=== PATIENT | female | born 1955 | race Caucasian/White ===

== ENCOUNTER 2021-03-05 09:20 | Outpatient (REF) | payer MEDICARE, SELFPAY ==
--- NOTE | ~2021-03-05 | MM_ITS ---
EXAMINATION: MM SCREENING DIGITAL BREAST TOMOSYNTHESIS, BILATERAL CLINICAL INFORMATION: Screening. Asymptomatic. The lifetime risk of breast cancer based on the Tyrer-Cuzick Model is 6%. COMPARISON: Mammography: 01/20/2020, 07/04/2018, 04/03/2015 TECHNIQUE: Digital breast tomosynthesis is performed in both the craniocaudal and mediolateral oblique views along with computer-aided detection (CAD). Synthesized 2D images are generated from the tomosynthesis. Additional left MLO view is provided. FINDINGS: The breasts are heterogeneously dense, which may obscure small masses (ACR BI-RADS breast composition Category c). The right breast has a 4 mm nodular asymmetry on the MLO view close to skin inferior breast, 4 cm. The nipple. Patient will be recalled for additional imaging. The remainder of the breasts are significant changes from prior studies. There is no interval mass or architectural abnormality or abnormal calcifications in the remainder of the breasts. The axilla and skin contours are unremarkable. MM/MM tomosynthesis screening BI IMPRESSION: 1. Right: Nodular asymmetric density lower quadrant on MLO view, close to skin. 2. Left: No mammographic evidence of malignancy. ASSESSMENT: BI-RADS 0: Incomplete - Need Additional Imaging Evaluation RECOMMENDATION: 1. Assess for dermal lesion in this area are obtained imaging with skin marker if applicable. Otherwise, ML, spot CC outer). 2. Targeted ultrasound if warranted after review of the additional views. 3. Radiology department staff will contact the patient for additional imaging. This patient's information was entered into a reminder system with a target due date for their next mammogram.
== END 2021-03-05 09:21 | disposition home or self-care (01) ==
LOC: HO.MAMMO 09:20
PROVIDERS: PCP Internal Medicine; Visit Provider Internal Medicine
DX: Z12.31 Encounter for screening mammogram for malignant neoplasm of breast (principal)
CPT/HCPCS: 77063; 77067

== ENCOUNTER 2021-03-11 07:47 | Outpatient (REF) | payer MEDICARE, SELFPAY ==
--- NOTE | ~2021-03-11 | MM_ITS ---
EXAMINATION: MM DIAGNOSTIC DIGITAL BREAST TOMOSYNTHESIS, RIGHT CLINICAL INFORMATION: Nodular density inferiorly COMPARISON: Mammography: March 05, 2021 and studies dating back to October 25, 2012 TECHNIQUE: Digital breast tomosynthesis is performed. 2D images are generated from the tomosynthesis. The following views are obtained: Spot compression craniocaudal and mediolateral oblique views. FINDINGS: The breasts are heterogeneously dense, which may obscure small masses (ACR BI-RADS breast composition Category c). Additional views show no significant mass, architectural abnormality, or abnormal calcifications. There is a mole noted about the inferior and slightly medial aspect of the right breast and not lateral. Targeted right breast ultrasound did not demonstrate any abnormal cystic or solid lesion. No region of suspicious distal sound shadowing identified. Results are discussed with the patient at time of visit. MM/MM tomosynthesis added views R IMPRESSION: No persistent suspicious mass. ASSESSMENT: BI-RADS 1: Negative RECOMMENDATION: Routine annual screening. This patient's information was entered into a reminder system with a target due date for their next mammogram.
--- NOTE | ~2021-03-11 | US_ITS ---
EXAMINATION: US DIAGNOSTIC ULTRASOUND BREAST, RIGHT CLINICAL INFORMATION: Question nodular density on mammography. COMPARISON: Mammography of March 11, 2021 and studies dating back to October 25, 2012. TECHNIQUE: Ultrasound of the breast is performed with real-time robbins scale imaging and color Doppler. FINDINGS: There is no focal suspicious finding. There is no solid mass, architectural abnormality, duct ectasia, or edema in the soft tissue planes. Results are discussed with the patient at time of visit. US/US breast RT limited IMPRESSION: No suspicious right breast nodule identified. ASSESSMENT: BI-RADS 1: Negative RECOMMENDATION: Routine annual mammography screening. This patient's information was entered into a reminder system with a target due date for their next mammogram.
== END 2021-03-11 07:48 | disposition home or self-care (01) ==
LOC: HO.MAMMO 07:47
PROVIDERS: Visit Provider Internal Medicine
DX: R92.2 Inconclusive mammogram (principal)
CPT/HCPCS: 76642; 77061; 77065

== ENCOUNTER 2022-02-22 09:21 | Outpatient (REF) | payer MEDICARE, SELFPAY ==
[2022-02-22 11:35] LABS: MANUAL DIFF FLAG NO
[2022-02-22 11:41] LABS: Basophils Percent Auto 0.3 % (0-2); Eosinophils Absolute Auto 0.1 X10*3/uL (0.0-0.4); Eosinophils Percent Auto 2.1 % (0-4); Hematocrit 40.9 % (37.0-47.0); Imm Gran Abs Auto 0.02 X10*3/uL (0.00-0.03); Imm Gran Pct Auto 0.3 % (0.0-0.4); Lymphocytes Absolute Auto 1.1 X10*3/uL (1.2-4.9); Mean Corpuscular HGB Conc 31.8 g/dl (31.0-35.0); Mean Corpuscular Hemoglobin 29.7 pg (27.0-33.0); Mean Corpuscular Volume 93.6 fL (80.0-98.0); Mean Platelet Volume 10.7 fL (9.4-12.3); Monocytes Absolute Auto 0.5 X10*3/uL (0.1-1.2); Monocytes Percent Auto 7.6 % (2-11); Neutrophils Absolute Auto 4.5 x10*3/uL (2.0-8.3); Neutrophils Percent Auto 72.7 % (45-73); Platelet Count 244 X10*3/uL (160-400); Red Blood Count 4.37 X10*6/uL (4.20-5.50); Red Cell Distribution Width 13.6 % (11.0-16.0); White Blood Count 6.2 X10*3/uL (4.8-10.8)
[2022-02-22 12:11] LABS: Alanine Aminotransferase 16 U/L (0-31); Albumin Level 4.2 g/dL (3.5-5.0); Alkaline Phosphatase 68 U/L (39-117); Anion Gap 11 (12-20); Aspartate Amino Transferase 20 U/L (5-31); Bilirubin Total 0.5 mg/dL (0.0-1.0); Blood Urea Nitrogen 17 mg/dL (9-16); Calcium 9.1 mg/dL (8.4-10.2); Carbon Dioxide 30 mmol/L (22-29); Chloride 103 mmol/L (96-108); Cholesterol 202 mg/dL; Estimated Glomerular Filt Rate > 60; Glucose Random 97 mg/dL (60-115); HDL Cholesterol 63 mg/dL; LDL Cholesterol Calculated 126 mg/dl; Potassium 4.1 mmol/L (3.3-5.1); Sodium 140 mmol/L (135-145); Triglycerides 66 mg/dL
[2022-02-22 12:15] LABS: Vitamin D 25-OH Total 41.1 ng/mL (>30)
== END 2022-02-22 09:22 | disposition home or self-care (01) ==
LOC: HO.HMGCLDS 09:21
PROVIDERS: Visit Provider Internal Medicine
DX: E55.9 Vitamin D deficiency, unspecified (principal); E78.00 Pure hypercholesterolemia, unspecified; M54.50 Low back pain, unspecified; G89.29 Other chronic pain; Z86.79 Personal history of other diseases of the circulatory system
CPT/HCPCS: 36415; 80053; 80061; 82306; 84443; 85025

== ENCOUNTER 2022-03-29 09:00 | Outpatient (REF) | payer MEDICARE, SELFPAY ==
--- NOTE | ~2022-03-29 | MM_ITS ---
EXAMINATION: MM SCREENING DIGITAL BREAST TOMOSYNTHESIS, BILATERAL CLINICAL INFORMATION: Screening. Asymptomatic. The lifetime risk of breast cancer based on the Tyrer-Cuzick Model is 5%. COMPARISON: Mammography: 03/11/2021, 03/05/2021, 01/20/2020, 07/04/2018; ultrasound right breast 03/11/2021 TECHNIQUE: Digital breast tomosynthesis is performed in both the craniocaudal and mediolateral oblique views along with computer-aided detection (CAD). Synthesized 2D images are generated from the tomosynthesis. Additional right CC and left MLO views are provided. FINDINGS: The breasts are heterogeneously dense, which may obscure small masses (ACR BI-RADS breast composition Category c). Breast tissue composition borders on extremely dense. There are minor asymmetries similar to prior studies. No developing density or architectural abnormality. No significant mass or abnormal calcifications. The axilla are unremarkable. MM/MM tomosynthesis screening BI IMPRESSION: No mammographic evidence of malignancy. ASSESSMENT: BI-RADS 2: Benign RECOMMENDATION: Routine annual mammography screening. This patient's information was entered into a reminder system with a target due date for their next mammogram.
--- NOTE | ~2022-03-29 | MM_ITS ---
EXAMINATION: BONE DENSITOMETRY CLINICAL INDICATION: Menopause. COMPARISON: Previous BD dated 01/20/2020 and baseline BD dated 04/10/2007. TECHNIQUE: Using a [employer] DXA System (software version: 13.1) manufactured by [employer], dual-energy x-ray absorptiometry was performed of the lumbar spine and left hip. The images are of good technical quality. Summary results are attached. FINDINGS: AP SPINE L1-L4: Current: BMD 0.933 g/cm2, Z-score -0.6, T-score -2.1, osteopenia, 2.6% increase from previous, 11.4% decrease from baseline (<5% change is not significant). Prior: BMD 0.909 g/cm2. Baseline: BMD 1.053 g/cm2. LEFT FEMUR, NECK: Current: BMD 0.852 g/cm2, Z-score 0.1, T-score -1.3, osteopenia. Prior: BMD 0.819 g/cm2. Baseline: BMD 0.927 g/cm2. LEFT FEMUR, TOTAL: Current: BMD 0.834 g/cm2, Z-score -0.2, T-score -1.4, osteopenia, 3.5% decrease from previous, 12.1% decrease from baseline (<5% change is not significant). Prior: BMD 0.864 g/cm2. Baseline: BMD 0.949 g/cm2. IDENTIFIED RISK FACTORS: Height loss, menopause. HISTORY OF FRACTURE: None listed. MEDICATIONS: Calcium supplements or multivitamin, vitamin D. MM/XR DEXA axial skeleton IMPRESSION: 1. DIAGNOSIS: Osteopenia based on the lowest T-score value of -2.1 in the lumbar spine applying World Health Organization criteria. 2. 10-YEAR FRACTURE RISK PREDICTION, FRAX: Major osteoporotic fracture (clinical spine, forearm, hip or shoulder) 9.2%. Hip fracture 1.1%. 3. Treatment Recommendations: NOF guidelines recommend consideration for treatment in postmenopausal women and men age 50 and older presenting with the following: -A hip or vertebral (clinical or morphometric) fracture. -T-score less than or equal to -2.5 at the femoral neck or spine after appropriate evaluation to exclude secondary causes. -Low bone mass at the hip or spine and a 10-year fracture probability by FRAX of greater than or equal to 3% for hip fracture or greater than or equal to 20% for major osteoporotic fracture based on the [place] adapted WHO algorithm. 4. Other Recommendations: All treatment decisions require clinical judgment and consideration of individual patient factors, including patient preferences, comorbidities, previous drug use, risk factors not captured in the FRAX model (e.g. frailty, falls, vitamin D deficiency, increased bone turnover, interval significant decline in bone density) and possible under or overestimation of fracture risk by FRAX. Additional medical evaluation for secondary cause of low bone mineral density may be appropriate. FUTURE SCAN RECOMMENDATION: People with diagnosed cases of osteoporosis or at high risk for fracture should have regular bone mineral density tests. For patients eligible for Medicare, routine testing is allowed once every 2 years. The testing frequency can be increased to one year for patients who have rapidly progressing disease, those who are receiving or discontinuing medical therapy to restore bone mass, or have additional risk factors.
== END 2022-03-29 09:01 | disposition home or self-care (01) ==
LOC: HO.MAMMO 09:00
PROVIDERS: Visit Provider Internal Medicine
DX: Z12.31 Encounter for screening mammogram for malignant neoplasm of breast (principal); Z13.820 Encounter for screening for osteoporosis; Z78.0 Asymptomatic menopausal state; M85.80 Other specified disorders of bone density and structure, unspecified site
CPT/HCPCS: 77063; 77067; 77080

== ENCOUNTER 2022-09-09 13:00 | Outpatient (RCR) | payer MEDICARE, SELFPAY | END 2022-09-09 16:05 | disposition home or self-care (01) | LOC: HO.PTCHIC 13:00 | PROVIDERS: Visit Provider Physical Medicine & Rehabilitation | DX: M25.551 Pain in right hip (principal); M25.552 Pain in left hip | CPT/HCPCS: 97110; 97116; 97140; 97161 ==

== ENCOUNTER 2023-03-30 08:56 | Outpatient (REF) | payer MEDICARE, SELFPAY ==
--- NOTE | ~2023-03-30 | MM_ITS ---
EXAMINATION: MM SCREENING DIGITAL BREAST TOMOSYNTHESIS, BILATERAL CLINICAL INFORMATION: Screening. Asymptomatic. The lifetime risk of breast cancer based on the Tyrer-Cuzick Model is 5.9%. COMPARISON: Mammography: March 29, 2022 and studies dating back to October 25, 2012 TECHNIQUE: Digital breast tomosynthesis is performed in both the craniocaudal and mediolateral oblique views along with computer-aided detection (CAD). Synthesized 2D images are generated from the tomosynthesis. FINDINGS: The breasts are heterogeneously dense, which may obscure small masses (ACR BI-RADS breast composition Category c). There are no new significant masses, abnormal calcifications, or other abnormalities. MM/MM tomosynthesis screening BI IMPRESSION: No significant changes from prior exam. ASSESSMENT: BI-RADS 1: Negative RECOMMENDATION: Routine annual mammography screening. This patient's information was entered into a reminder system with a target due date for their next mammogram.
== END 2023-03-30 08:57 | disposition home or self-care (01) ==
LOC: HO.MAMMO 08:56
PROVIDERS: PCP Internal Medicine; Visit Provider Internal Medicine
DX: Z12.31 Encounter for screening mammogram for malignant neoplasm of breast (principal)
CPT/HCPCS: 77063; 77067

== ENCOUNTER 2023-10-24 09:24 | Outpatient (REF) | payer MEDICARE, SELFPAY ==
[2023-10-24 11:15] LABS: MANUAL DIFF FLAG NO
[2023-10-24 11:20] LABS: Basophils Absolute Auto 0.1 X10*3/uL (0.0-0.2); Basophils Percent Auto 1.2 % (0-2); Eosinophils Absolute Auto 0.4 X10*3/uL (0.0-0.4); Eosinophils Percent Auto 8.3 % (0-4); Hematocrit 37.5 % (37.0-47.0); Hemoglobin 12.1 g/dl (12.0-16.0); Imm Gran Abs Auto 0.02 X10*3/uL (0.00-0.03); Imm Gran Pct Auto 0.4 % (0.0-0.4); Lymphocytes Absolute Auto 0.9 X10*3/uL (1.2-4.9); Lymphocytes Percent Auto 17.7 % (20-40); Mean Corpuscular HGB Conc 32.3 g/dl (31.0-35.0); Mean Corpuscular Volume 92.8 fL (80.0-98.0); Mean Platelet Volume 10.7 fL (9.4-12.3); Monocytes Absolute Auto 0.6 X10*3/uL (0.1-1.2); Monocytes Percent Auto 10.7 % (2-11); Neutrophils Absolute Auto 3.2 x10*3/uL (2.0-8.3); Neutrophils Percent Auto 61.7 % (45-73); Platelet Count 250 X10*3/uL (160-400); Red Blood Count 4.04 X10*6/uL (4.20-5.50); Red Cell Distribution Width 13.4 % (11.0-16.0); White Blood Count 5.2 X10*3/uL (4.8-10.8)
[2023-10-24 12:21] LABS: Alanine Aminotransferase 15 U/L (0-31); Albumin Level 4.1 g/dL (3.5-5.0); Alkaline Phosphatase 67 U/L (39-117); Anion Gap 11 (12-20); Aspartate Amino Transferase 23 U/L (5-31); Bilirubin Total 0.4 mg/dL (0.0-1.0); Blood Urea Nitrogen 28 mg/dL (9-16); Calcium 8.9 mg/dL (8.4-10.2); Carbon Dioxide 28 mmol/L (22-29); Chloride 105 mmol/L (96-108); Cholesterol 198 mg/dL (<200); Estimated Glomerular Filt Rate > 60; Glucose Random 93 mg/dL (60-115); HDL Cholesterol 60 mg/dL (>40); LDL Cholesterol Calculated 122 mg/dL (<100); Potassium 4.2 mmol/L (3.3-5.1); Sodium 140 mmol/L (135-145); Thyroid Stimulating Hormone 2.71 uIU/mL (0.32-4.0); Total Protein 7.1 g/dL (6.5-8.0); Triglycerides 80 mg/dL (<150)
== END 2023-10-24 09:25 | disposition home or self-care (01) ==
LOC: HO.HMGCLDS 09:24
PROVIDERS: PCP Internal Medicine; Visit Provider Internal Medicine
DX: M15.9 Polyosteoarthritis, unspecified (principal); M34.1 CR(E)ST syndrome; E78.00 Pure hypercholesterolemia, unspecified; Z86.79 Personal history of other diseases of the circulatory system
CPT/HCPCS: 36415; 80053; 80061; 84443; 85025

== ENCOUNTER 2024-04-12 12:46 | Outpatient (REF) | payer MEDICARE, SELFPAY ==
--- NOTE | ~2024-04-12 | MM_ITS ---
EXAMINATION: BONE DENSITOMETRY CLINICAL INDICATION: Asymptomatic menopausal state. COMPARISON: Previous BD dated 03/29/2022 and baseline BD dated 04/10/2007. TECHNIQUE: Using a [employer] DXA System (software version: 13.1) manufactured by [employer], dual-energy x-ray absorptiometry was performed of the lumbar spine and left hip. The images are of good technical quality. Summary results are attached. FINDINGS: LEFT FEMUR, NECK: Current: BMD 0.882 g/cm2, Z-score 0.4, T-score -1.1, osteopenia. Prior: BMD 0.852 g/cm2. Baseline: BMD 0.927 g/cm2. LEFT FEMUR, TOTAL: Current: BMD 0.817 g/cm2, Z-score -0.2, T-score -1.5, osteopenia, 2.0% decrease from previous, 13.9% decrease from baseline (<5% change is not significant). Prior: BMD 0.834 g/cm2. Baseline: BMD 0.949 g/cm2. AP SPINE L1-L4: Current: BMD 0.913 g/cm2, Z-score -0.8, T-score -2.2, osteopenia, 2.1% decrease from previous, 13.3% decrease from baseline (<5% change is not significant). Prior: BMD 0.933 g/cm2. Baseline: BMD 1.053 g/cm2. IDENTIFIED RISK FACTORS: Menopause. HISTORY OF FRACTURE: None listed. MEDICATIONS: Calcium supplements or multivitamin, vitamin D. MM/XR DEXA axial skeleton IMPRESSION: 1. DIAGNOSIS: Osteopenia based on the lowest T-score value of -2.2 in the lumbar spine applying World Health Organization criteria. 2. 10-YEAR FRACTURE RISK PREDICTION, FRAX: Major osteoporotic fracture (clinical spine, forearm, hip or shoulder) 9.0%. Hip fracture 1.0%. 3. Treatment Recommendations: NOF guidelines recommend consideration for treatment in postmenopausal women and men age 50 and older presenting with the following: -A hip or vertebral (clinical or morphometric) fracture. -T-score less than or equal to -2.5 at the femoral neck or spine after appropriate evaluation to exclude secondary causes. -Low bone mass at the hip or spine and a 10-year fracture probability by FRAX of greater than or equal to 3% for hip fracture or greater than or equal to 20% for major osteoporotic fracture based on the [place] adapted WHO algorithm. 4. Other Recommendations: All treatment decisions require clinical judgment and consideration of individual patient factors, including patient preferences, comorbidities, previous drug use, risk factors not captured in the FRAX model (e.g. frailty, falls, vitamin D deficiency, increased bone turnover, interval significant decline in bone density) and possible under or overestimation of fracture risk by FRAX. Additional medical evaluation for secondary cause of low bone mineral density may be appropriate. FUTURE SCAN RECOMMENDATION: People with diagnosed cases of osteoporosis or at high risk for fracture should have regular bone mineral density tests. For patients eligible for Medicare, routine testing is allowed once every 2 years. The testing frequency can be increased to one year for patients who have rapidly progressing disease, those who are receiving or discontinuing medical therapy to restore bone mass, or have additional risk factors.
== END 2024-04-12 12:47 | disposition home or self-care (01) ==
LOC: HO.MAMMO 12:46
PROVIDERS: PCP Internal Medicine; Visit Provider Internal Medicine
DX: Z12.31 Encounter for screening mammogram for malignant neoplasm of breast (principal); Z13.820 Encounter for screening for osteoporosis; Z78.0 Asymptomatic menopausal state
CPT/HCPCS: 77063; 77067; 77080

== ENCOUNTER → 2024-04-12 13:00 | Outpatient (BNV) | payer MEDICARE, SELFPAY | PROVIDERS: PCP Internal Medicine; Visit Provider Radiology Diagnostic Radiology | DX: Z12.31 Encounter for screening mammogram for malignant neoplasm of breast (principal) | CPT/HCPCS: 77063; 77067 ==

== ENCOUNTER 2024-09-27 13:41 | Outpatient (AMB) | payer MEDICARE, SELFPAY ==
[2024-09-27 13:45] VITALS: BP 108/60; PULSE 72; O2SAT 99; BMI 22.1
--- NOTE | 2024-09-27 13:45 | MHC.OFFVIS ---
Vital Signs 09/27/24 13:45 Height 5 ft 7.5 in Weight 143 lb 4.807 oz BMI 22.1 BP 108/60 Blood Pressure Location Lt brachial Position Sitting Pulse 72 Pulse Source Pulse Oximeter Pulse Oximetry (%) 99 Oxygen Delivery Method Room Air Intake Visit Reasons: deshawn [employer] Required: No Allergies amoxicillin Allergy (Unknown, Uncoded 09/27/24 13:50) rash bactrim Allergy (Unknown, Uncoded 09/27/24 13:50) facial redness codeine Allergy (Unknown, Uncoded 09/27/24 13:50) vomiting percocet Allergy (Unknown, Uncoded 09/27/24 13:50) vomiting HPI Comments Details: the patient is here for pulmonary evaluation. The patient is a 69-year-old woman with a known history of limited scleroderma, pulmonary fibrosis, sleep apnea on CPAP in addition to cardiac arrhythmia. Apparently she was diagnosed with atrial fibrillation atrial flutter and did require ablation. Currently on medication. The patient has been demonstrating worsening daytime drowsiness. Her [place] score is elevated 10/20. The patient had been on CPAP many years ago. with her worsening daytime drowsiness in his significant cardiac arrhythmia history the patient benefits from an in-lab sleep study at this time. She also states that she does have increasing dyspnea on exertion. [id number] severity. Difficult for her to ambulate because she does have a bad hip. In regards of her limited scleroderma patient denies any worsening Dysphagia. She has not had any recent imaging studies to assess for any pulmonary fibrosis. She does get Raynaud's although denies any necrosis or ischemia to the tip fingers. [facility] Medical History (Updated 09/29/24 @ 19:04 by Lavelle Jacques MD) Limited scleroderma SVT (supraventricular tachycardia) Atrial flutter DESHAWN (obstructive sleep apnea) Social History (Updated 09/27/24 @ 13:52 by ZECHARIAH Millan) Patient Tobacco Use Status: Former Tobacco user Review of Systems Const Reports daytime sleepiness, Reports difficulty sleeping, Reports headache(s), Reports snoring and Reports stops breathing during sleep Eyes Reports no additional complaints ENT Denies dysphagia and Reports headache(s) Card Reports palpitations Resp Reports snoring and Denies wheezing GI Denies dysphagia Musc Reports myalgias, Reports arthralgias and Reports limited range of motion Skin/Breast Denies rash Neuro Reports headache(s) Endo Reports palpitations Aller/Immun Denies wheezing Physical Exam Vital Signs: Last Vital Signs Pulse 72 09/27/24 13:45 BP 108/60 09/27/24 13:45 Pulse Ox 99 09/27/24 13:45 Oxygen Delivery Method Room Air 09/27/24 13:45 BMI result Body Mass Index 22.1 Const General: comfortable HEENT Head: Yes normocephalic Neck Neck: Yes supple Chest Chest palpation & inspection: normal inspection of the chest Resp Effort & Inspection: normal respiratory effort Auscultation: clear to auscultation bilaterally GI Palpation (GI): Soft to palpation Skin General skin exam: no rashes or lesions noted Extrem General: Yes no clubbing, cyanosis or edema Assessment & Plan Assessment & Plan (1) DESHAWN (obstructive sleep apnea): Code(s): G47.33 - Obstructive sleep apnea (adult) (pediatric) Category: Medical (2) Atrial flutter: Code(s): I48.92 - Unspecified atrial flutter Category: Medical Qualifiers: Atrial flutter type: unspecified Qualified Code(s): I48.92 - Unspecified atrial flutter (3) SVT (supraventricular tachycardia): Code(s): I47.10 - Supraventricular tachycardia, unspecified Category: Medical (4) Limited scleroderma: Code(s): M34.9 - Systemic sclerosis, unspecified Category: Medical Plan in lab PSG repeat CXR F/U 2 months Orders: Orders RT PSG in-lab sleep study 09/27/24 G47.33 - Obstructive sleep apnea (adult) (pediatric), I47.10 - Supraventricular tachycardia, unspecified, I48.92 - Unspecified atrial flutter XR chest 2V Today M34.9 - Systemic sclerosis, unspecified Coding Level of Care Code New Pt Level 4 (50891) Diagnoses DESHAWN (obstructive sleep apnea) G47.33 Atrial flutter, unspecified type I48.92 Atrial flutter type: unspecified SVT (supraventricular tachycardia) I47.10 Limited scleroderma M34.9 Time Spent (min) 30
== END 2024-09-27 14:12 | disposition home or self-care (01) ==
LOC: HO.HPS 13:41
PROVIDERS: PCP Internal Medicine; Visit Provider Hospitalist
DX: G47.33 Obstructive sleep apnea (adult) (pediatric) (principal); I48.92 Unspecified atrial flutter; I47.10 Supraventricular tachycardia, unspecified; M34.9 Systemic sclerosis, unspecified
CPT/HCPCS: 99204

== ENCOUNTER → 2024-09-27 13:41 | Outpatient (BNVA) | payer MEDICARE, SELFPAY | PROVIDERS: PCP Internal Medicine; Visit Provider Hospitalist | DX: G47.33 Obstructive sleep apnea (adult) (pediatric) (principal); M34.9 Systemic sclerosis, unspecified; J84.10 Pulmonary fibrosis, unspecified; I48.92 Unspecified atrial flutter; I47.10 Supraventricular tachycardia, unspecified; Z99.89 Dependence on other enabling machines and devices | CPT/HCPCS: 99202 ==

== ENCOUNTER → 2024-10-18 20:30 | Outpatient (REF) | payer MEDICARE, SELFPAY | LOC: HO.SL 20:30 | PROVIDERS: PCP Internal Medicine; Visit Provider Hospitalist | DX: G47.33 Obstructive sleep apnea (adult) (pediatric) (principal); I48.92 Unspecified atrial flutter; I47.10 Supraventricular tachycardia, unspecified | CPT/HCPCS: 95810 ==

== ENCOUNTER 2024-11-13 13:19 | Outpatient (AMB) | payer MEDICARE, SELFPAY ==
[2024-11-13 13:25] VITALS: BP 108/62; PULSE 76; O2SAT 100; BMI 22.6
--- NOTE | 2024-11-13 13:25 | A.OFFVIS_ITS ---
Vital Signs 11/13/24 13:25 Height 5 ft 7.2 in Weight 145 lb 1.027 oz BMI 22.6 BP 108/62 Blood Pressure Location Lt brachial Position Sitting Pulse 76 Pulse Source Pulse Oximeter Pulse Oximetry (%) 100 Oxygen Delivery Method Room Air Intake Visit Reasons: Arthritis Intake Note: Patient presents today for follow up on osteoarthritis. Allergies amoxicillin Allergy (Unknown, Uncoded 11/13/24 13:27) rash bactrim Allergy (Unknown, Uncoded 11/13/24 13:27) facial redness codeine Allergy (Unknown, Uncoded 11/13/24 13:27) vomiting percocet Allergy (Unknown, Uncoded 11/13/24 13:27) vomiting HPI HPI Arthritis: Details: She saw Dermatology Dr. Marie for management of scalp psoriasis and eye lid psoriasis. She is being treated with topicals. Dermatology is not concerned for scleroderma affecting her forearm. No biopsy was done. Raynauds in hands- fingers turn white in cold, self-limited. Controlled with wearing gloves. No dysphagia, dyspnea, pleurisy, oral ulcerations, joint pain, fevers, fatigue. She will be seeing roof fitter next year with repeat echocardiogram. She is being evaluated for pulmonary hypertension associated with systemic sclerosis with echocardiograms every 3 years. [facility] Medical History (Updated 11/14/24 @ 16:07 by Andrei Jimenez MD) Limited scleroderma SVT (supraventricular tachycardia) Atrial flutter RINA (obstructive sleep apnea) Social History (Updated 09/27/24 @ 13:52 by Dorita Shepard Lucas) Patient Tobacco Use Status: Former Tobacco user Review of Systems Const All systems reviewed & are unremarkable except as noted in HPI and below Physical Exam Vital Signs: Last Vital Signs Pulse 76 11/13/24 13:25 BP 108/62 11/13/24 13:25 Pulse Ox 100 11/13/24 13:25 Oxygen Delivery Method Room Air 11/13/24 13:25 BMI result Body Mass Index 22.6 Const Other: General: Comfortable CVS: RRR Respiratory: clear to auscultation bilaterally. Good respiratory effort Skin: No lesions seen. Sclerodactyly present. No digital ulcerations or discoloration of fingertips. Facial wrinkles present. MSK: No tenderness of any joints. R 2nd PIP swollen and tender on exam. Good range of motion of upper extremities and lower extremities. 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 Clinically, quiescent. She has developed right 2nd PIP synovitis likely related to degenerative joint disease as noted on her x-ray from 05/27/2024. We discussed conservative management. My suspicion for psoriatic arthritis is low at this time. I will monitor for progression. Code(s): M34.9 - Systemic sclerosis, unspecified Category: Medical Plan: Her roof fitter will be retiring next year. I will be monitoring her for the development of pulmonary hypertension with repeating echocardiograms every 3 years as has been the plan per her roof fitter Apply diclofenac gel 1% to affected area every 4-6 hours ESR and CRP ordered to evaluate for disease activity She will call office if joint symptoms progress Return to clinic in 3 months (2) Raynaud disease: Comment: Conservatively managed. Code(s): I73.00 - Raynaud's syndrome without gangrene Category: Medical Qualifiers: Raynaud?s-associated gangrene presence: without gangrene Qualified Code(s): I73.00 - Raynaud's syndrome without gangrene Plan: Continue conservative management Orders: Orders Erythrocyte Sedimentation Rate 11/13/24 M34.9 - Systemic sclerosis, unspecified C Reactive Protein 11/13/24 M34.9 - Systemic sclerosis, unspecified Coding Level of Care Code Est Pt Level 4 (06128) Complex EM visit Add On G2211 Diagnoses Limited scleroderma M34.9 Raynaud's disease without gangrene I73.00 Raynaud?s-associated gangrene presence: without gangrene
== END 2024-11-13 14:23 | disposition home or self-care (01) ==
PROVIDERS: PCP Internal Medicine; Visit Provider Internal Medicine Rheumatology
DX: M34.9 Systemic sclerosis, unspecified (principal); I73.00 Raynaud's syndrome without gangrene
CPT/HCPCS: 99214; G2211

== ENCOUNTER → 2024-11-13 13:19 | Outpatient (BNVA) | payer MEDICARE, SELFPAY | PROVIDERS: PCP Internal Medicine; Visit Provider Internal Medicine Rheumatology | DX: M34.9 Systemic sclerosis, unspecified (principal); I73.00 Raynaud's syndrome without gangrene | CPT/HCPCS: 99212 ==

== ENCOUNTER 2024-12-26 15:12 | Outpatient (AMB) | payer MEDICARE, SELFPAY ==
[2024-12-26 15:39] VITALS: BP 96/54; PULSE 79; O2SAT 99; BMI 22.5
--- NOTE | 2024-12-26 15:39 | A.OFFVIS_ITS ---
Vital Signs 12/26/24 15:39 Height 5 ft 7.5 in Weight 145 lb 8.081 oz BMI 22.5 BP 96/54 L Blood Pressure Location Rt brachial Position Sitting Pulse 79 Pulse Source Pulse Oximeter Pulse Oximetry (%) 99 Oxygen Delivery Method Room Air Intake Visit Reasons: Obstructive sleep apnea Allergies amoxicillin Allergy (Unknown, Uncoded 12/26/24 15:42) rash bactrim Allergy (Unknown, Uncoded 12/26/24 15:42) facial redness codeine Allergy (Unknown, Uncoded 12/26/24 15:42) vomiting percocet Allergy (Unknown, Uncoded 12/26/24 15:42) vomiting HPI Comments Details: The patient is a 69-year-old woman with a known history of limited scleroderma, pulmonary fibrosis, sleep apnea on CPAP in addition to cardiac arrhythmia. Apparently she was diagnosed with atrial fibrillation atrial flutter and did require ablation. Currently on medication. The patient has been demonstrating worsening daytime drowsiness. Her [place] score is elevated 11/24. The patient had been on CPAP many years ago. with her worsening daytime drowsiness in his significant cardiac arrhythmia history the patient benefits from an in-lab sleep study at this time. She also states that she does have increasing dyspnea on exertion. Wzgy-ri-iebezgib severity. Difficult for her to ambulate because she does have a bad hip. In regards of her limited scleroderma patient denies any worsening Dysphagia. She has not had any recent imaging studies to assess for any pulmonary fibrosis. She does get Raynaud's although denies any necrosis or ischemia to the tip fingers. 12/26/2024 the patient is here for a pulmonary follow-up visit. Overall she is doing okay. She seems to be sleeping okay although very fragmented sleep. She did undergo the in-lab sleep study in though she was able to fall asleep initially she woke up multiple times and then after 01:00 o'clock in the morning she could not go back to bed. Therefore, her study was inconclusive. We did review her sleep study that she had back in 2019 that was a home sleep study in that was also inconclusive. Prior to that in 2014 she had a sleep study that demonstrated significant sleep apnea. She does have a cardiac history and also history of limited scleroderma. I did review her echocardiogram which is reassuring. She is scheduled to have PFTs and also a chest x-ray in the coming weeks. Will plan to start her on trazodone to help her with sleep and then plan to repeat her sleep study when she is doing better with her sleep habit. Hopefully we can reassess her sleep study based on her nondiagnostic recent study. Will follow-up in 3 months if any issues arise she will call for an earlier assessment. [facility] Medical History (Updated 11/14/24 @ 16:07 by Andrei Jimenez MD) Limited scleroderma SVT (supraventricular tachycardia) Atrial flutter RINA (obstructive sleep apnea) Social History Patient Tobacco Use Status: Former Tobacco user Review of Systems Const Reports daytime sleepiness, Reports difficulty sleeping, Reports headache(s), Reports snoring and Reports stops breathing during sleep Eyes Reports no additional complaints ENT Denies dysphagia and Reports headache(s) Card Reports palpitations Resp Reports snoring and Denies wheezing GI Denies dysphagia Musc Reports myalgias, Reports arthralgias and Reports limited range of motion Skin/Breast Denies rash Neuro Reports headache(s) Endo Reports palpitations Aller/Immun Denies wheezing Physical Exam Vital Signs: Last Vital Signs Pulse 79 12/26/24 15:39 BP 96/54 L 12/26/24 15:39 Pulse Ox 99 12/26/24 15:39 Oxygen Delivery Method Room Air 12/26/24 15:39 BMI result Body Mass Index 22.5 Const General: comfortable HEENT Head: Yes normocephalic Neck Neck: Yes supple Chest Chest palpation & inspection: normal inspection of the chest Resp Effort & Inspection: normal respiratory effort Auscultation: clear to auscultation bilaterally GI Palpation (GI): Soft to palpation Skin General skin exam: no rashes or lesions noted Extrem General: Yes no clubbing, cyanosis or edema Assessment & Plan Assessment & Plan (1) RINA (obstructive sleep apnea): Code(s): G47.33 - Obstructive sleep apnea (adult) (pediatric) Category: Medical (2) Atrial flutter: Code(s): I48.92 - Unspecified atrial flutter Category: Medical Qualifiers: Atrial flutter type: unspecified Qualified Code(s): I48.92 - Unspecified atrial flutter (3) SVT (supraventricular tachycardia): Code(s): I47.10 - Supraventricular tachycardia, unspecified Category: Medical (4) Limited scleroderma: Comment: 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 Clinically, quiescent. She has developed right 2nd PIP synovitis likely related to degenerative joint disease as noted on her x-ray from 05/27/2024. We discussed conservative management. My suspicion for psoriatic arthritis is low at this time. I will monitor for progression. Code(s): M34.9 - Systemic sclerosis, unspecified Category: Medical Plan start Trazadone 25mg-->50mg Awaiting PSG 2014 to review recent inlab PSG inconclusive, will likely need to repeat PFTs/CXR next month F/U 3 months Medications: New trazodone 50 mg PO BEDTIME PRN 30 tabs 6RF sleep 30 days Coding Level of Care Code Est Pt Level 4 (89437) Diagnoses RINA (obstructive sleep apnea) G47.33 Atrial flutter, unspecified type I48.92 Atrial flutter type: unspecified SVT (supraventricular tachycardia) I47.10 Limited scleroderma M34.9 Time Spent (min) 17
--- OUTSIDE RECORDS SUMMARY | 2024-12-26 18:59 | XMS_ITS | Patient Health Record ---
Author [facility] Address [address] [place] [address] Care Team Providers Care Web Applications Architect Name Role Phone Osmany Duncan MD Primary Care Provider Kyle Jauregui Unavailable [phone] Allergies Allergen (clinical drug ingredient) Drug/Non Drug Allergy documented on EMR Reaction Allergy Type Onset Date Status sulfamethoxazole / trimethoprim Bactrim rash Drug Allergy Active erythromycin Erythromycin red rash Drug Allergy A ctive acetaminophen / oxycodone Percocet Unknown Drug Allergy Active benzalkonium Merthiolate hives Drug Allergy Ac tive codeine Codeine nausea and vomiting Drug Allergy Active Reason For Referral No Information Medications Medication SIG (Take, Route, Frequency, Duration) Notes Start Date End Date Status Multivitamin Orally every other day Active Metoprolol Tartrate 25 MG Orally Twice a day Active Calcium Orally every other day Active Celecoxib 200 MG 1 capsule with food Orally twice a day Active Aredia Active Tums Not-Taking Doxycycline Monohydrate 100 MG 1 capsule Orally Once a day for 10 days 04/03/2023 Active Vitamin D Active Social History Tobacco Use: Social History Observation Description Date Details (start date - stop date) Former Smoker NA - NA Tobacco Use/Smoking Question Answer Notes Are you a: former smoker Additional Findings: Tobacco Non-User Current no n-smoker Alcohol Screen Question Answer Notes Did you have a drink containing alcohol in the p ast year? Yes Points 0 Interpretation Negative Tobacco use other than smoking: Question Answer Notes Are you an other tobacco user? No Problems Problem Type SNOMED Code ICD Code Onset Dates Problem Status W/U Status Risk Notes Problem Non-pressure chronic ulcer of other part of left foot limited to breakdown of skin (L97.521) Active confirmed Problem 082472847 Raynaud's disease without gangrene (I73.00) Active confirmed Problem 57554247 Scleroderma (M34.9) Active confirmed Problem 581675607 Raynauds disease without gangrene (I73.00) Active confirmed Plan Of Treatment Pending Test Test Name Order Date [id number] Plate 10/30/2017 [id number] Plate 03/02/2018 [id number] Plate 05/08/2018 Insurance Providers Payer Name Payer Address Payer Phone Subscriber Number Group Number Insured Name Patient Relationship to Insured Coverage Start Date Coverage End Date [employer] [place] [employer]age [address] [place] [place] [id number] Rebecca Francis Self - patient is the insured Medical (General) History Medical History History ICD Code Diverticulosis Chicken pox Measles Mumps Raynauds syndrome Reflux Scleroderma Surgical History Surgery Date(Month/Year) thyroid 2007 cardiac ablation 2008
--- OUTSIDE RECORDS SUMMARY | 2024-12-26 18:59 | XMS_ITS | Clinical Summary ---
Author Organization [facility] Address [address] [place] [address] Care Team Providers Care Cloth Covered Helmet Puller Name Role Phone Osmany Duncan MD Primary Care Provider [phone] Medications Medication Sig Dispensed Refills Start Date End Date Status metoprolol tartrate (LOPRESSOR) 25 mg tablet TAKE 1 TABLET BY MOUTH TWICE A DAY 180 tablet 2 10/29/2024 Active Surgical History Surgery Date Site/Laterality Comments OTHER SURGICAL HISTORY 2007 PROCEDURE: DC ABLATE L/R ATRIAL FIBRIL W/ISOLATED PULM VEIN; COMMENT: Cardiac Albation Medical History Medical History Date Comments Anxiety 02/12/2019 DX:Anxiety Depression 02/12/2019 DX:Depression History of supraventricular tachycardia 12/06/2018 DX:History of supraventricul ar tachycardia; COMMENT: 2008 Ablation Pulmonary fibrosis (CMS/HCC) 02/12/2019 DX: Pulmonary fibrosis (HCC) CREST (calcinosis, Raynaud's phenomenon, esophageal dysfunction, sclerodactyly, telangiectasia) (CMS/HCC) 12/06/2018 DX:CREST (calcinosis, Raynau d's phenomenon, esophageal dysfunction, sclerodactyly, telangiectasia) (HCC) RINA (obstructive sleep apnea) 12/06/2018 DX :RINA (obstructive sleep apnea); COMMENT: 12/2018 Home Sleep Study did not reveal sleep apnea. Raynaud disease 12/06/2018 DX:Raynaud disea se Social History Tobacco Use Types Packs/Day Years Used Date Smoking Tobacco: Former Cigarettes 2 6 0 12/06/1973 - 12/06/1979 Smokeless Tobacco: Former Alcohol Use Standard Drinks/Week Comments Not Currently 0 (1 standard drink = 0.6 oz pur e alcohol) Sex and Gender Information Value Date Recorded Sex Assigned at Not on file Gender Identity Not on file Sexual Orientation Not on file Obstetrics History Last Filed Vital Signs Vital Sign Reading Time Taken Comments Blood Pressure 140/82 07/30/2024 1:00 PM EDT Sitting R Arm Pulse 70 07/30/2024 1:00 PM EDT Temperature - - Respiratory Rate - - Oxygen Saturation - - Inhaled Oxygen Concentration - - Weight 64.9 kg (143 lb 1.6 oz) 07/30/2024 1:00 PM EDT Height 171.5 cm (5' 7.5 ) 07/30/2024 1: 00 PM EDT Body Mass Index 22.08 07/30/2024 1:00 PM EDT Plan of Treatment Upcoming Encounters Date Type Department Care Team (Late st Contact Info) Description 07/17/2025 11:00 AM EDT Ancillary Procedure [facility] - [address] [place] [address] Health Maintenance Due Date Last Done Comments Breast Cancer Screening 1955 DTaP,Tdap,and Td Vaccines (1 - Tdap) 1973 Zoster Vaccines (1 of 2) 2004 Pneumococcal Vaccine: 65+ Ye ars (1 of 1 - PCV) 2019 Colorectal Cancer Screening: Colonoscopy 10/29/2022 Depression Screening 10/29/2022 Falls Risk Assessment 10/29/2022 Hepatitis C Screening 10/29/2022 Medicare Annual Wellness Visit 10/29/2022 Osteoporosis Screening (Bone Density Screening) 10/29/2022 Social Influencers of Health Screening 10/29/2022 COVID-19 Vaccine ( - 2023-2 5 season) 2024 Influenza Vaccine (#1) 2024 RSV Immunization Patients 60 + Years Old (1 - 1-dose 75+ series) 2029 HIB Vaccines Aged Out No longer eligi ble based on patient's age to complete this topic HPV Vaccines Aged Out No longer eligi ble based on patient's age to complete this topic Hepatitis A Vaccines Aged Out No long er eligible based on patient's age to complete this topic Hepatitis B Vaccines Aged Out No long er eligible based on patient's age to complete this topic IPV Vaccines Aged Out No longer eligi ble based on patient's age to complete this topic MMR Vaccines Aged Out No longer eligi ble based on patient's age to complete this topic Meningococcal ACWY Vaccine Aged Out N o longer eligible based on patient's age to complete this topic RSV Immunization Patients Un sim 20 months Aged Out No longer eligible b ased on patient's age to complete this topic Varicella Vaccines Aged Out No longer eligible based on patient's age to complete this topic Care Teams Cloth Covered Helmet Puller Relationship Specialty Start Date End Date Osmany Duncan MD [address] [place] [address] PCP - General Internal Medicine 06/03/13
== END 2024-12-26 16:14 | disposition home or self-care (01) ==
PROVIDERS: PCP Internal Medicine; Visit Provider Hospitalist
DX: G47.33 Obstructive sleep apnea (adult) (pediatric) (principal); I48.92 Unspecified atrial flutter; I47.10 Supraventricular tachycardia, unspecified; M34.9 Systemic sclerosis, unspecified
CPT/HCPCS: 99214

== ENCOUNTER → 2024-12-26 15:12 | Outpatient (BNVA) | payer MEDICARE, SELFPAY | PROVIDERS: PCP Internal Medicine; Visit Provider Hospitalist | DX: G47.33 Obstructive sleep apnea (adult) (pediatric) (principal); I48.92 Unspecified atrial flutter; I47.10 Supraventricular tachycardia, unspecified; M34.9 Systemic sclerosis, unspecified | CPT/HCPCS: 99212 ==

== ENCOUNTER 2025-01-01 13:55 | Outpatient (REF) | payer MEDICARE, SELFPAY ==
--- NOTE | ~2025-01-01 | XR_ITS ---
EXAMINATION: XR CHEST CLINICAL INFORMATION: M34.9 - Systemic sclerosis, unspecified COMPARISON: None available. TECHNIQUE: 2 views of the chest were obtained. FINDINGS: The cardiac, hilar, and mediastinal contours are normal. The lungs are mildly hyperaerated. There are increased subpleural interstitial markings in the lung bases bilaterally. Early interstitial disease is not excluded. There are calcified granulomas in the upper lungs. Lungs otherwise clear. There is no pneumothorax or pleural effusion. There is no focal osseous or soft tissue abnormality. Surgical clips seen in the right neck. XR/XR chest 2V IMPRESSION: 1. Increased peripheral interstitial markings in the lung bases. Early interstitial lung disease is not excluded. 2. Mild pulmonary hyperaeration. Lungs otherwise clear. Electronically signed by: Benjamin Black MD 01/02/2025 09:01 AM FREDY
--- NOTE | 2025-01-01 14:00 | PFT_ITS ---
Flows: FEV1: 109 % of predicted at 2.67 L FVC: 109 % of predicted at 3.48 L FEV1/FVC: 77 % Bronchodilator response: Absent Volumes: Total lung capacity: 95 % of predicted at 5.31 L Residual volume: 84 % of predicted at 1.88 L Slow vital capacity: 104 % of predicted at 3.44 L Expiratory reserve volume: 203 % of predicted at 1.69 L Diffusion capacity: Normal Impression: No obstructive or restrictive ventilatory defect. No bronchodilator response. Normal pulmonary function test. MTDD
--- OUTSIDE RECORDS SUMMARY | 2025-01-01 15:15 | XMS_ITS | Encounter Summary ---
Author Organization [facility] Address [address] [place] [address] Care Team Providers Care Departmental Secretary Name Role Phone Osmany Duncan MD Primary Care Provider [phone] Reason for Visit * Reason Onset Date Comments Medical Records 11/14/2024 Encounter Details Date Type Department Care Team (Late st Contact Info) Description 11/14/2024 Telephone [facility]iology [facility] [address] [place] [address] Osmany Duncan MD [address] [place], [place] [id number] Medical Records Social History Tobacco Use Types Packs/Day Years Used Date Smoking Tobacco: Former Cigarettes 2 6 0 12/06/1973 - 12/06/1979 Smokeless Tobacco: Former Alcohol Use Standard Drinks/Week Comments Not Currently 0 (1 standard drink = 0.6 oz pur e alcohol) Sex and Gender Information Value Date Recorded Sex Assigned at Not on file Gender Identity Not on file Sexual Orientation Not on file documented as of this encounter Progress Notes * Elma Guevara - 12/27/2024 4:11 PM EST Faxed 07/30/2024 Office Note and 09/29/2022 Echo report to [facility] At [phone] on 11/14/2024 documented in this encounter Plan of Treatment Upcoming Encounters Date Type Department Care Team (Late st Contact Info) Description 07/17/2025 11:00 AM EDT Ancillary Procedure [facility] [address] [place] [address] documented as of this encounter Visit Diagnoses Not on filedocumented in this encounter Care Teams Departmental Secretary Relationship Specialty Start Date End Date Osmany Duncan MD [address] [facility] [place] [address] PCP - General Internal Medicine 06/03/13 documented as of this encounter
--- OUTSIDE RECORDS SUMMARY | 2025-01-01 15:15 | XMS_ITS | Clinical Summary ---
Author Organization [facility] Address [address] [place] [address] Care Team Providers Care Paper Colorer Name Role Phone Osmany Duncan MD Primary Care Provider Medications Medication Sig Dispensed Refills Start Date End Date Status metoprolol tartrate (LOPRESSOR) 25 mg tablet TAKE 1 TABLET BY MOUTH TWICE A DAY 180 tablet 2 10/29/2024 Active Encounters Date Type Department Care Team Description 11/14/2024 Telephone [facility] [address] [place] [address] Osmany Duncan MD Medical Records from Last 3 Months Surgical History Surgery Date Site/Laterality Comments OTHER SURGICAL HISTORY 2007 PROCEDURE: ID ABLATE L/R ATRIAL FIBRIL W/ISOLATED PULM VEIN; [...] Description 07/17/2025 11:00 AM EDT Ancillary Procedure [facility] [address] [facility] [address] [place] [address] Health Maintenance Due Date Last [...] age to complete this topic Care Teams Paper Colorer Relationship Specialty Start Date End Date Osmany Duncan MD [address] [place] [address] PCP - General Internal Medicine 06/03/13
== END 2025-01-01 13:56 | disposition home or self-care (01) ==
LOC: HO.RESP 13:55
PROVIDERS: PCP Internal Medicine; Visit Provider Hospitalist
DX: M34.9 Systemic sclerosis, unspecified (principal)
CPT/HCPCS: 71046; 94010; 94640; 94727; 94729

== ENCOUNTER → 2025-01-01 14:00 | Outpatient (BNV) | payer MEDICARE, SELFPAY | PROVIDERS: PCP Internal Medicine; Visit Provider Internal Medicine Pulmonary Disease | DX: M34.9 Systemic sclerosis, unspecified (principal) | CPT/HCPCS: 94060; 94727; 94729 ==

== ENCOUNTER → 2025-01-01 14:58 | Outpatient (BNV) | payer MEDICARE, SELFPAY | PROVIDERS: PCP Internal Medicine; Visit Provider Radiology Diagnostic Radiology | DX: J84.10 Pulmonary fibrosis, unspecified (principal) | CPT/HCPCS: 71046 ==

== ENCOUNTER 2025-02-11 12:58 | Outpatient (AMB) | payer MEDICARE, SELFPAY ==
--- NOTE | 2025-02-11 13:00 | MHC.OFFVIS ---
Vital Signs 02/11/25 13:03 Height 5 ft 7.5 in Weight 149 lb 11.102 oz BMI 23.1 BP 100/64 Blood Pressure Location Lt brachial Position Sitting Intake Visit Reasons: Follow up 3mo Intake Note: Patient presents today for follow up on osteoarthritis. Accompanied by: Self / Same As Patient Allergies amoxicillin Allergy (Unknown, Uncoded 12/26/24 15:42) rash bactrim Allergy (Unknown, Uncoded 12/26/24 15:42) facial redness codeine Allergy (Unknown, Uncoded 12/26/24 15:42) vomiting percocet Allergy (Unknown, Uncoded 12/26/24 15:42) vomiting HPI HPI Follow up 3mo: Details: Echo 01/2022 reviewed. Normal. She denies any new symptoms. She feels well. Denies new skin changes or skin tightening. Raynaud's is controlled. She has not had an active episode from Raynaud's syndrome in a few years. She denies dyspnea or pleurisy or dysphagia. [facility] Medical History Limited scleroderma SVT (supraventricular tachycardia) Atrial flutter RINA (obstructive sleep apnea) Social History Patient Tobacco Use Status: Former Tobacco user Review of Systems Const All systems reviewed & are unremarkable except as noted in HPI and below Physical Exam Vital Signs: Last Vital Signs BP 100/64 02/11/25 13:03 BMI result Body Mass Index 23.1 Const Other: General: Comfortable CVS: RRR Respiratory: clear to auscultation bilaterally. Good respiratory effort Skin: No lesions seen. Sclerodactyly present. No digital ulcerations or discoloration of fingertips. Facial wrinkles present. MSK: No tenderness of any joints. Nor range of motion of upper extremities and lower extremities. Assessment & Plan Assessment & Plan (1) Limited scleroderma: Comment: Clinically, quiescent. Echo 01/2022 normal. Her white lead grinder is retiring this year. She has history of psoriasis without clinical findings of psoriatic arthritis. I have reassured patient again that she does not have psoriatic arthritis at this time. Rheumatology history: Diagnosed with limited cutaneous systemic sclerosis, seronegative (KRISTIE, anticentromere antibody, anti-SCl70 ab). Presenting with sclerodactyly and Raynaud's phenomenon. She developed thickening of her skin in bilateral forearms 2023 right worse than left but Gas Welder Dr. Marie did not feel that the skin changes were related to scleroderma and biopsy was not warrented. Improving with topical steroid. Code(s): M34.9 - Systemic sclerosis, unspecified Category: Medical Plan: I will be monitoring her for the development of pulmonary hypertension with repeating echocardiograms every 3 years as she was doing under the care of her current white lead grinder Return to clinic in 1 year or sooner if needed (2) Raynaud disease: Comment: Conservatively managed. Not active at this time. Code(s): I73.00 - Raynaud's syndrome without gangrene Category: Medical Qualifiers: Raynaud?s-associated gangrene presence: without gangrene Qualified Code(s): I73.00 - Raynaud's syndrome without gangrene Plan: Continue conservative management Coding Level of Care Code Est Pt Level 4 (31171) Complex EM visit Add On G2211 Diagnoses Limited scleroderma M34.9 Raynaud's disease without gangrene I73.00 Raynaud?s-associated gangrene presence: without gangrene
[2025-02-11 13:03] VITALS: BP 100/64; BMI 23.1
--- OUTSIDE RECORDS SUMMARY | 2025-02-11 15:10 | XMS_ITS | Patient Health Record ---
Author [facility] Address [address] [place] [address] Care Team Providers Care Admissions Consultant Name Role Phone Osmany Duncan MD Primary Care Provider Kyle Jauregui Unavailable [phone] Allergies Allergen (clinical drug ingredient) Drug/Non Drug Allergy documented on EMR Reaction Allergy Type Onset Date Status Bactrim rash Drug Allergy Active erythromycin Erythromycin [...] breakdown of skin (L97.521) Active confirmed Problem 584707314 Raynaud's disease without gangrene (I73.00) Active confirmed Problem 44408085 Scleroderma (M34.9) Active confirmed Problem 887334220 Raynauds disease without gangrene (I73.00) Active confirmed Plan Of Treatment Pending Test Test Name Order Date [id number] Plate 10/30/2017 [id number] Plate 03/02/2018 [id number] Plate 05/08/2018 Insurance Providers Payer Name Payer Address Payer Phone Subscriber Number Group Number Insured Name Patient Relationship to Insured Coverage Start Date Coverage End Date [employer] [place] Medicare [employer]age [address] [facility] [address] [facility] [place] [id number] [phone] [id number] Rebecca Francis Self - patient is the insured Medical (General) History Medical History History ICD Code Diverticulosis Chicken pox Measles Mumps Raynauds syndrome Reflux Scleroderma Surgical History Surgery Date(Month/Year) thyroid 2007 cardiac ablation 2008
--- OUTSIDE RECORDS SUMMARY | 2025-02-11 15:10 | XMS_ITS | Clinical Summary ---
Author Organization [facility] Address [address] [place] [id number] Care Team Providers Care Underwriter Name Role Phone Osmany Duncan MD Primary Care Provider [phone] Allergies Active Allergy Reactions Criticality Noted Date Comments Amoxicillin 11/05/2020 Other Reaction(s): Hives/Urticaria Codeine Nausea And Vomiting 11/05/2020 Other 11/05/2020 Merthiolate [Neosporin Wound Cleanser] Other Reaction(s): Hives/Urticaria Oxycodone Nausea And Vomiting 11/05/2020 Percocet [Apap-fd&c Blue #1-oxycodone] Oxycodone Hcl 03/27/2023 Sulfa (Sulfonamide Antibiotics) 11/05/2020 Other Reaction(s): Hives/Urticaria Thimerosal 03/27/2023 Trimethoprim 03/27/2023 Medications metoprolol tartrate (LOPRESSOR) 25 mg tablet TAKE 1 TABLET BY MOUTH TWICE A DAY 180 tablet 2 4 Active CALCIUM CARBONATE ORAL Take 600 mg by mouth 1 (one) time each day. Active vit C/E/Zn/coppr/lute in/zeaxan (PRESERVISION AREDS-2 ORAL) Take 1 tablet by mouth 2 (two) times a day. Active multivit-min/iron /folic acid/K (ADULTS MULTIVITAMIN ORAL) Take 1 tablet by mouth 1 (one) time each day. Active cholecalciferol (VITAMIN D-3) 50 mcg (2,000 unit) capsule Take 1 capsule (2,000 Units total) by mouth 1 (one) time each day. Active Active Problems Problem Noted Date Diagnosed Date Dyspnea 10/26/2021 Anxiety 02/12/2019 Depression 02/12/2019 Pulmonary fibrosis 02/12/2019 CREST (calcinosis, Raynaud's phenomenon, esophageal dysfunction, sclerodactyly, telangiectasia) 12/06/2018 RINA (obstructive sleep apnea) 12/06/2018 Overview (01/20/2025): 12/2018 Home Sleep Study did not reveal sleep apnea. Raynaud disease 12/06/2018 Encounters Date Type Department Care Team Description 11/14/2024 Telephone [facility] [address] [facility] [facility] [facility] [address] [place] [address] Osmany Duncan MD Medical Records from Last 3 Months Surgical History Surgery Date Site/Laterality Comments OTHER SURGICAL HISTORY 2007 PROCEDURE: [place] ABLATE L/R ATRIAL FIBRIL W/ISOLATED PULM VEIN; COMMENT: Cardiac Albation Medical History Medical History Date Comments Anxiety 02/12/2019 DX:Anxiety Depression 02/12/2019 DX:Depression History of supraventricular tachycardia 12/06/2018 DX:History of supraventricul ar tachycardia; COMMENT: 2007 Ablation Pulmonary fibrosis (CMS/HCC) 02/12/2019 DX: Pulmonary [...] drink = 0.6 oz pur e alcohol) Comments Unknown Sex and Gender Information Value Date Recorded Sex Assigned at Not on file Legal Sex Female 8:54 PM EST Gender Identity Not on file Sexual Orientation [...] Description 07/17/2025 11:00 AM EDT Ancillary Procedure [facility] - [address] [place] [address] Health Maintenance Due Date Last Done Comments Breast Cancer Screening 1955 DTaP,Tdap,and Td Vaccines (1 - Tdap) 1973 Pneumococcal Vaccine: 50+ Ye ars (1 of 1 - PCV) 2004 Zoster Vaccines (1 of 2) 2004 Colorectal Cancer Screening: Colonoscopy 10/29/2022 Depression Screening [...] patient's age to complete this topic Meningococcal B Vacine Aged Out No lo nger eligible based on patient's age to complete this topic RSV Immunization Patients Un sim 20 months Aged Out No longer eligible b ased on patient's age to complete this topic Varicella Vaccines Aged Out No longer eligible based on patient's age to complete this topic Insurance [employer] [place] [employer] Care Teams Underwriter Relationship Specialty Start Date End Date Osmany Duncan MD [address] [place] [id number] PCP - General Internal Medicine 06/03/13
== END 2025-02-11 14:10 | disposition home or self-care (01) ==
LOC: HO.RHES 12:59
PROVIDERS: PCP Internal Medicine; Visit Provider Internal Medicine Rheumatology
DX: M34.9 Systemic sclerosis, unspecified (principal); I73.00 Raynaud's syndrome without gangrene
CPT/HCPCS: 99214; G2211

== ENCOUNTER → 2025-02-11 12:58 | Outpatient (BNVA) | payer MEDICARE, SELFPAY | PROVIDERS: PCP Internal Medicine; Visit Provider Internal Medicine Rheumatology | DX: M34.9 Systemic sclerosis, unspecified (principal); I73.00 Raynaud's syndrome without gangrene | CPT/HCPCS: 99212 ==

== ENCOUNTER 2025-03-13 09:26 | Outpatient (REF) | payer MEDICARE, SELFPAY ==
--- OUTSIDE RECORDS SUMMARY | 2025-03-13 10:46 | XMS_ITS | Patient Health Record ---
Author Organization [facility] Address [address] [place] [address] Care Team Providers Care Lead Supply Worker Name Role Phone Osmany Duncan MD Primary Care Provider Kyle Jauregui Unavailable [phone] Allergies Allergen (clinical drug ingredient) Drug/Non Drug [...] breakdown of skin (L97.521) Active confirmed Problem 994208707 Raynaud's disease without gangrene (I73.00) Active confirmed Problem 78649373 Scleroderma (M34.9) Active confirmed Problem [id number] Raynauds disease without gangrene (I73.00) Active confirmed Plan Of Treatment Pending Test Test Name Order Date [id number] Plate 10/30/2017 [id number] Plate 03/02/2018 74188-Zmtbadmm Plate 05/08/2018 Insurance Providers Payer Name Payer Address Payer Phone Subscriber Number Group Number Insured Name Patient Relationship to Insured Coverage Start Date Coverage End Date [employer] [place] Medicare [employer]vantage [address] [facility] [place] [id number] Rebecca Francis Self - patient is the insured Medical (General) History Medical History History ICD Code Diverticulosis Chicken pox Measles Mumps Raynauds syndrome Reflux Scleroderma Surgical History Surgery Date(Month/Year) thyroid 2007 cardiac ablation 2008
--- OUTSIDE RECORDS SUMMARY | 2025-03-13 10:46 | XMS_ITS | Clinical Summary ---
Author Organization [facility] Address [address] [place] [address] Care Team Providers Care Machine Stuffer Automatic Name Role Phone Osmany Duncan MD Primary Care Provider [phone] Allergies Active Allergy Reactions Criticality Noted Date [...] 10/26/2021 Anxiety 02/12/2019 Depression 02/12/2019 Pulmonary fibrosis (CMS/HCC V24, CMS/HCC V28) CREST (calcinosis, Raynaud's phenomenon, esophageal dysfunction, sclerodactyly, telangiectasia) ([facility] V24, [facility] V28) 12/06/2018 RINA (obstructive sleep apnea) 12/06/2018 Overview (01/20/2025): 12/2018 Home Sleep Study did not reveal sleep apnea. Raynaud disease 12/06/2018 Surgical History Surgery Date Site/Laterality Comments OTHER SURGICAL HISTORY 2007 PROCEDURE: CT ABLATE L/R ATRIAL FIBRIL W/ISOLATED PULM VEIN; COMMENT: Cardiac Albation Medical History Medical History Date Comments Anxiety 02/12/2019 DX:Anxiety Depression 02/12/2019 DX:Depression History of supraventricular tachycardia 12/06/2018 DX:History of supraventricul ar tachycardia; COMMENT: 2007 Ablation Pulmonary fibrosis ([facility] V24, [facility] V28) 02/12/2019 DX:Pulmonary fibrosis (HCC) CREST (calcinosis, Raynaud's phenomenon, esophageal dysfunction, sclerodactyly, telangiectasia) ([facility] V24, [facility] V28) 12/06/2018 DX:CREST (calcinosis, Angeline ud's phenomenon, esophageal dysfunction, sclerodactyly, telangiectasia) ([facility]) RINA (obstructive sleep apnea) 12/06/2018 DX :RINA [...] Description 07/17/2025 11:00 AM EDT Ancillary Procedure [facility] - [address] [place] [address] Health Maintenance Due Date Last [...] - 2023-2 5 season) 2024 Influenza Vaccine (Season Ended) 2025 RSV Immunization Adult Patie nts (1 - 1-dose 75+ series) 2029 HIB [...] age to complete this topic Meningococcal B Vaccine Aged Out No l onger eligible based on patient's age to complete this topic RSV Immunization Patients Un sim 20 months Aged Out No longer eligible b ased on patient's age to complete this topic Varicella Vaccines Aged Out No longer eligible based on patient's age to complete this topic Insurance [employer] [place] [employer] Care Teams Machine Stuffer Automatic Relationship Specialty Start Date End Date Osmany Duncan MD [address] [place], [place] [phone] PCP - General Internal Medicine 06/03/13
[2025-03-13 13:11] LABS: MANUAL DIFF FLAG NO
[2025-03-13 13:32] LABS: Estimated Average Glucose 111 mg/dL; Hemoglobin A1C 126.6849 umol/L; Hemoglobin A1c % 5.5 % (<6.0); Total Hemoglobin (HGBA1C) 3432.7096 umol/L
[2025-03-13 13:34] LABS: Basophils Absolute Auto 0.1 X10*3/uL (0.0-0.2); Basophils Percent Auto 1.1 % (0-2); Eosinophils Absolute Auto 0.4 X10*3/uL (0.0-0.4); Eosinophils Percent Auto 7.1 % (0-4); Hematocrit 38.5 % (37.0-47.0); Hemoglobin 12.6 g/dl (12.0-16.0); Imm Gran Abs Auto 0.02 X10*3/uL (0.00-0.03); Imm Gran Pct Auto 0.4 % (0.0-0.4); Lymphocytes Absolute Auto 0.9 X10*3/uL (1.2-4.9); Lymphocytes Percent Auto 16.2 % (20-40); Mean Corpuscular HGB Conc 32.7 g/dl (31.0-35.0); Mean Corpuscular Hemoglobin 29.9 pg (27.0-33.0); Mean Corpuscular Volume 91.2 fL (80.0-98.0); Mean Platelet Volume 10.8 fL (9.4-12.3); Monocytes Absolute Auto 0.5 X10*3/uL (0.1-1.2); Monocytes Percent Auto 9.3 % (2-11); Neutrophils Absolute Auto 3.7 x10*3/uL (2.0-8.3); Neutrophils Percent Auto 65.9 % (45-73); Platelet Count 231 X10*3/uL (160-400); Red Blood Count 4.22 X10*6/uL (4.20-5.50); Red Cell Distribution Width 13.5 % (11.0-16.0); White Blood Count 5.6 X10*3/uL (4.8-10.8)
[2025-03-13 13:45] LABS: Alanine Aminotransferase 15 U/L (0-31); Albumin Level 3.9 g/dL (3.5-5.0); Anion Gap 11 (12-20); Aspartate Amino Transferase 25 U/L (5-31); Bilirubin Total 0.3 mg/dL (0.0-1.0); Blood Urea Nitrogen 21 mg/dL (9-16); Carbon Dioxide 29 mmol/L (22-29); Chloride 104 mmol/L (96-108); Cholesterol 188 mg/dL (<200); Estimated Glomerular Filt Rate > 60; Glucose Random 89 mg/dL (60-115); HDL Cholesterol 61 mg/dL (>40); LDL Cholesterol Calculated 114 mg/dL (<100); Potassium 4.2 mmol/L (3.3-5.1); Sodium 140 mmol/L (135-145); Total Protein 6.7 g/dL (6.5-8.0); Triglycerides 66 mg/dL (<150)
[2025-03-13 13:57] LABS: Thyroid Stimulating Hormone 2.69 uIU/mL (0.32-4.0); Vitamin D 25-OH Total 66.9 ng/mL (>30)
[2025-03-13 14:08] LABS: Alkaline Phosphatase 69 U/L (39-117)
== END 2025-03-13 09:27 | disposition home or self-care (01) ==
LOC: HO.HMGCLDS 09:26
PROVIDERS: PCP Internal Medicine; Visit Provider Internal Medicine
DX: M15.9 Polyosteoarthritis, unspecified (principal); E78.00 Pure hypercholesterolemia, unspecified; Z13.1 Encounter for screening for diabetes mellitus
CPT/HCPCS: 36415; 80053; 80061; 82306; 83036; 84443; 85025

== ENCOUNTER 2025-03-18 15:34 | Outpatient (AMB) | payer MEDICARE, SELFPAY ==
[2025-03-18 15:36] VITALS: BP 114/64; PULSE 78; O2SAT 98; BMI 23.3
--- NOTE | 2025-03-18 15:36 | A.OFFVIS_ITS ---
Vital Signs 03/18/25 15:36 Height 5 ft 7.5 in Weight 151 lb 0.266 oz BMI 23.3 BP 114/64 Blood Pressure Location Lt brachial Position Sitting Pulse 78 Pulse Source Pulse Oximeter Pulse Oximetry (%) 98 Oxygen Delivery Method Room Air Intake Visit Reasons: Obstructive sleep apnea Field Ring Assembler Required: No Accompanied by: Self / Same As Patient Allergies amoxicillin Allergy (Unknown, Uncoded 12/26/24 15:42) rash bactrim Allergy (Unknown, Uncoded 12/26/24 15:42) facial redness codeine Allergy (Unknown, Uncoded 12/26/24 15:42) vomiting percocet Allergy (Unknown, Uncoded 12/26/24 15:42) vomiting HPI Comments Details: The patient is a 69-year-old woman with a known history of limited scleroderma, pulmonary fibrosis, sleep apnea on CPAP in addition to cardiac arrhythmia. Apparently she was diagnosed with atrial fibrillation atrial flutter and did require ablation. Currently on medication. The patient has been demonstrating worsening daytime drowsiness. Her Laketon score is elevated 11/24. The patient had been on CPAP many years ago. with her worsening daytime drowsiness in his significant cardiac arrhythmia history the patient benefits from an in-lab sleep study at this time. She also states that she does have increasing dyspnea on exertion. Xrgi-av-uexegckl severity. Th patient denies any worsening Dysphagia. She has not had any recent imaging studies to assess for any pulmonary fibrosis. She does get Raynaud's although denies any necrosis or ischemia to the tip fingers. 12/26/2024 the patient is here for a pulmonary follow-up visit. Overall she is doing okay. She seems to be sleeping okay although very fragmented sleep. She did undergo the in-lab sleep study in though she was able to fall asleep initially she woke up multiple times and then after 01:00 o'clock in the morning she could not go back to bed. Therefore, her study was inconclusive. We did review her sleep study that she had back in 2018 that was a home sleep study in that was also inconclusive. Prior to that in 2014 she had a sleep study that demonstrated significant sleep apnea. She does have a cardiac history and also history of limited scleroderma. I did review her echocardiogram which is reassuring. She is scheduled to have PFTs and also a chest x-ray in the coming weeks. Will plan to start her on trazodone to help her with sleep and then plan to repeat her sleep study when she is doing better with her sleep habit. Hopefully we can reassess her sleep study based on her nondiagnostic recent study. Will follow-up in 3 months if any issues arise she will call for an earlier assessment. 03/18/2025 the patient is here for a pulmonary follow-up visit. Overall she is doing well. She is using the trazodone with good effect. She is able to sleep much better throughout the nighttime. She sometimes has vivid dreams. I do believe that is likely that she has catching up with all the REM sleep that she could not have before. She is still waking up tired. Her Laketon score still elevated event over 24. She also has a flutter. Her last sleep study was inconclusive because of the fact that she could not sleep. Will plan to continue the trazodone especially since his working well will plan to repeat the sleep study sometime May. Patient follow-up after that. She did undergo pulmonary function studies which I personally reviewed with her. Lung capacity is normal. She also had a chest x-ray which I personally reviewed with her. I did not find any interstitial lung disease. No evidence of any pulmonary hypertension. Her lungs appeared to be slightly larger in size but is likely because of her body type. No evidence of any air trapping or hyperinflation on her PFTs which is reassuring. Therefore, will have her continue the sleep aid and have her repeat the sleep study to make sure that she is not needing to go back on CPAP specially since she had history of it. [facility] Medical History Limited scleroderma SVT (supraventricular tachycardia) Atrial flutter RINA (obstructive sleep apnea) Social History Patient Tobacco Use Status: Former Tobacco user Review of Systems Const Reports daytime sleepiness, Reports difficulty sleeping, Reports headache(s), Reports snoring and Reports stops breathing during sleep Eyes Reports no additional complaints ENT Denies dysphagia and Reports headache(s) Card Reports palpitations Resp Reports snoring and Denies wheezing GI Denies dysphagia Musc Reports myalgias, Reports arthralgias and Reports limited range of motion Skin/Breast Denies rash Neuro Reports headache(s) Endo Reports palpitations Aller/Immun Denies wheezing Physical Exam Vital Signs: Last Vital Signs Pulse 78 03/18/25 15:36 BP 114/64 03/18/25 15:36 Pulse Ox 98 03/18/25 15:36 Oxygen Delivery Method Room Air 03/18/25 15:36 BMI result Body Mass Index 23.3 Const General: comfortable HEENT Head: Yes normocephalic Neck Neck: Yes supple Chest Chest palpation & inspection: normal inspection of the chest Resp Effort & Inspection: normal respiratory effort Auscultation: clear to auscultation bilaterally GI Palpation (GI): Soft to palpation Skin General skin exam: no rashes or lesions noted Extrem General: Yes no clubbing, cyanosis or edema Assessment & Plan Assessment & Plan (1) RINA (obstructive sleep apnea): Code(s): G47.33 - Obstructive sleep apnea (adult) (pediatric) Category: Medical (2) Atrial flutter: Code(s): I48.92 - Unspecified atrial flutter Category: Medical Qualifiers: Atrial flutter type: unspecified Qualified Code(s): I48.92 - Unspecified atrial flutter (3) SVT (supraventricular tachycardia): Code(s): I47.10 - Supraventricular tachycardia, unspecified Category: Medical (4) Limited scleroderma: Comment: Clinically, quiescent. Echo 01/2022 normal. 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 She has history of psoriasis without clinical findings of psoriatic arthritis. I have reassured patient again that she does not have psoriatic arthritis at this time. Rheumatology history: Diagnosed with limited cutaneous systemic sclerosis, seronegative (KRISTIE, anticentromere antibody, anti-SCl70 ab). Presenting with sclerodactyly and Raynaud's phenomenon. She developed thickening of her skin in bilateral forearms 2023 right worse than left but Quality Control Head Dr. Marie did not feel that the skin changes were related to scleroderma and biopsy was not warrented. Improving with topical steroid. Code(s): M34.9 - Systemic sclerosis, unspecified Category: Medical Plan Trazadone for sleep repeat inlab PSG, recent inlab PSG inconclusive F/U 4-6 months Orders: Orders RT PSG in-lab sleep study 3 Months G47.33 - Obstructive sleep apnea (adult) (pediatric) Coding Level of Care Code Est Pt Level 4 (92675) Complex EM visit Add On G2211 Diagnoses RINA (obstructive sleep apnea) G47.33 Atrial flutter, unspecified type I48.92 Atrial flutter type: unspecified SVT (supraventricular tachycardia) I47.10 Limited scleroderma M34.9 Time Spent (min) 17
--- OUTSIDE RECORDS SUMMARY | 2025-03-18 18:26 | XMS_ITS | Clinical Summary ---
Author Organization [facility] Address [address] [place] [address] Care Team Providers Care Dice Person Name Role Phone Osmany Duncan MD Primary Care Provider [phone] Allergies Active Allergy Reactions Criticality Noted Date [...] (calcinosis, Raynaud's phenomenon, esophageal dysfunction, sclerodactyly, telangiectasia) ([facility] V24, [facility] V28) 12/06/2018 RINA (obstructive sleep apnea) 12/06/2018 Overview (01/20/2025): 12/2018 Home Sleep Study did not reveal sleep apnea. Raynaud disease 12/06/2018 Surgical History Surgery Date Site/Laterality Comments OTHER SURGICAL HISTORY 2007 PROCEDURE: [place] ABLATE L/R ATRIAL FIBRIL W/ISOLATED PULM VEIN; COMMENT: Cardiac Albation Medical History Medical History Date Comments Anxiety 02/12/2019 DX:Anxiety Depression 02/12/2019 DX:Depression History of supraventricular tachycardia 12/06/2018 DX:History of supraventricul ar tachycardia; COMMENT: 2007 Ablation Pulmonary fibrosis ([facility] V24, [facility] V28) 02/12/2019 DX:Pulmonary fibrosis (HCC) CREST (calcinosis, Raynaud's phenomenon, esophageal dysfunction, sclerodactyly, telangiectasia) ([facility]24, [facility] V28) 12/06/2018 DX:CREST (calcinosis, Angeline ud's phenomenon, esophageal dysfunction, sclerodactyly, telangiectasia) ([facility]) RINA (obstructive sleep apnea) 12/06/2018 DX :RINA [...] Description 07/17/2025 11:00 AM EDT Ancillary Procedure [facility] - [address] [place] [address] Health Maintenance Due Date Last [...] [employer] [place] [employer] Care Teams Dice Person Relationship Specialty Start Date End Date Osmany Duncan MD [address], [place] [id number] PCP - General Internal Medicine 06/03/13
--- OUTSIDE RECORDS SUMMARY | 2025-03-18 18:26 | XMS_ITS | Patient Health Record ---
Author Organization [facility] Address [address] [place] [address] Care Team Providers Care Brake Repair Mechanic Name Role Phone Osmany Duncan MD Primary Care Provider Kyle Jauregui Unavailable [phone] Allergies Allergen (clinical drug ingredient) Drug/Non Drug [...] breakdown of skin (L97.521) Active confirmed Problem [id number] Raynaud's disease without gangrene (I73.00) Active confirmed Problem 48453943 Scleroderma (M34.9) Active confirmed Problem 724809358 Raynauds disease without gangrene (I73.00) Active confirmed Plan Of Treatment Pending Test Test Name Order Date [id number]-Ryendmup Plate 10/30/2017 [id number]-Irriokzk Plate 05/08/2018 30370-Nllnryey Plate 03/02/2018 Insurance Providers Payer Name Payer Address Payer Phone Subscriber Number Group Number Insured Name Patient Relationship to Insured Coverage Start Date Coverage End Date [employer] [place] Medicare Advantage [address] [facility] [place] [id number] Rebecca Francis Self - patient is the insured Medical (General) History Medical History History ICD Code Diverticulosis Chicken pox Measles Mumps Raynauds syndrome Reflux Scleroderma Surgical History Surgery Date(Month/Year) thyroid 2007 cardiac ablation 2008
== END 2025-03-18 16:07 | disposition home or self-care (01) ==
LOC: HO.HPS 15:35
PROVIDERS: PCP Internal Medicine; Visit Provider Hospitalist
DX: G47.33 Obstructive sleep apnea (adult) (pediatric) (principal); I48.92 Unspecified atrial flutter; I47.10 Supraventricular tachycardia, unspecified; M34.9 Systemic sclerosis, unspecified
CPT/HCPCS: 99214; G2211

== ENCOUNTER → 2025-03-18 15:34 | Outpatient (BNVA) | payer MEDICARE, SELFPAY | PROVIDERS: PCP Internal Medicine; Visit Provider Hospitalist | DX: G47.33 Obstructive sleep apnea (adult) (pediatric) (principal); I48.92 Unspecified atrial flutter; I47.10 Supraventricular tachycardia, unspecified; M34.9 Systemic sclerosis, unspecified | CPT/HCPCS: 99212 ==

== ENCOUNTER 2025-04-25 12:23 | Outpatient (REF) | payer MEDICARE, SELFPAY ==
--- OUTSIDE RECORDS SUMMARY | 2025-04-25 12:53 | XMS_ITS | Encounter Summary ---
Author Organization [facility] Address [address] [place] [address] Care Team Providers Care Assembly Inspector Helper Name Role Phone Osmany Duncan MD Primary Care Provider [phone] Encounter Details Date Type Department Care Team (Late st Contact Info) Description 04/09/2025 Telephone [facility] Cardiology [address] [place] [address] Rk Contreras MD [address] [address] Social History Tobacco Use Types Packs/Day Years [...] as of this encounter Progress Notes * Ramesh Yap - 04/25/2025 8:40 AM EDT Appointment scheduled 08/13 with Maria Ines as patient states she is okay to see him if that gets her an appointment. * Krista Lomeli - 04/16/2025 11:28 AM EDT Patient has echo on 07/17/2025 needs an appointment after this date. * Rhoda Carbajal - 04/09/2025 4:46 PM EDT Rebecca called for follow up appointment , with Dr. Contreras . She state d Dr. Contreras wanted to see her. ---Is it ok if she is seen by [facility] Rupert documented in this encounter Plan of Treatment Upcoming Encounters Date Type Department Care Team (Late st Contact Info) Description 07/17/2025 11:00 AM EDT Ancillary Procedure [facility] Cardiology [facility] - [address] [place] [address] 08/13/2025 10:40 AM EDT Office Visit [facility] Cardiology [facility] - [address] [place] [address] Manuel Spann NP [address] [place] [address] [address] [place] [address] documented as of this encounter Visit Diagnoses Not on filedocumented in this encounter Care Teams Assembly Inspector Helper Relationship Specialty Start Date End Date Osmany Duncan MD [address] [place] [address] PCP - General Internal Medicine 06/03/13 documented as of this encounter
== END 2025-04-25 12:24 | disposition home or self-care (01) ==
LOC: HO.MAMMO 12:23
PROVIDERS: PCP Internal Medicine; Visit Provider Internal Medicine
DX: Z12.31 Encounter for screening mammogram for malignant neoplasm of breast (principal)
CPT/HCPCS: 77063; 77067

== ENCOUNTER → 2025-04-25 12:30 | Outpatient (BNV) | payer MEDICARE, SELFPAY | PROVIDERS: PCP Internal Medicine; Visit Provider Internal Medicine | DX: Z12.31 Encounter for screening mammogram for malignant neoplasm of breast (principal) | CPT/HCPCS: 77063; 77067 ==

== ENCOUNTER → 2025-06-05 19:30 | Outpatient (REF) | payer MEDICARE, SELFPAY | LOC: HO.SL 19:30 | PROVIDERS: PCP Internal Medicine; Visit Provider Hospitalist | DX: G47.33 Obstructive sleep apnea (adult) (pediatric) (principal) | CPT/HCPCS: 95810 ==

== ENCOUNTER → 2025-06-05 21:15 | Outpatient (BNV) | payer MEDICARE, SELFPAY | PROVIDERS: PCP Internal Medicine; Visit Provider Internal Medicine | DX: G47.33 Obstructive sleep apnea (adult) (pediatric) (principal) | CPT/HCPCS: 95810 ==

== ENCOUNTER 2025-06-18 10:11 | Outpatient (AMB) | payer MEDICARE, SELFPAY ==
[2025-06-18 10:19] VITALS: BP 108/50; PULSE 68; BMI 23.5
--- NOTE | 2025-06-18 10:19 | MHC.OFFVIS ---
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 Apparently she was diagnosed with atrial fibrillation atrial flutter and did require ablation. Currently on medication. The patient has been demonstrating worsening daytime drowsiness. Her Atlanta score is elevated 11/24. The patient had been on CPAP many years ago. with her worsening daytime drowsiness in his significant cardiac arrhythmia history the patient benefits from an in-lab sleep study at this time. She also states that she does have increasing dyspnea on exertion. Ilxy-vo-hdhpljbb severity. Th patient denies any worsening Dysphagia. She has not had any recent imaging studies to assess for any pulmonary fibrosis. She does get Raynaud's although denies any necrosis or ischemia to the tip fingers. 12/26/2024 the patient is here for a pulmonary follow-up visit. Overall she is doing okay. She seems to be sleeping okay although very fragmented sleep. She did undergo the in-lab sleep study in though she was able to fall asleep initially she woke up multiple times and then after 01:00 o'clock in the morning she could not go back to bed. Therefore, her study was inconclusive. We did review her sleep study that she had back in 2019 that was a home sleep study in that was also inconclusive. Prior to that in 2014 she had a sleep study that demonstrated significant sleep apnea. She does have a cardiac history and also history of limited scleroderma. I did review her echocardiogram which is reassuring. She is scheduled to have PFTs and also a chest x-ray in the coming weeks. Will plan to start her on trazodone to help her with sleep and then plan to repeat her sleep study when she is doing better with her sleep habit. Hopefully we can reassess her sleep study based on her nondiagnostic recent study. Will follow-up in 3 months if any issues arise she will call for an earlier assessment. 03/18/2025 the patient is here for a pulmonary follow-up visit. Overall she is doing well. She is using the trazodone with good effect. She is able to sleep much better throughout the nighttime. She sometimes has vivid dreams. I do believe that is likely that she has catching up with all the REM sleep that she could not have before. She is still waking up tired. Her Atlanta score still elevated event over 24. She also has a flutter. Her last sleep study was inconclusive because of the fact that she could not sleep. Will plan to continue the trazodone especially since his working well will plan to repeat the sleep study sometime May. Patient follow-up after that. She did undergo pulmonary function studies which I personally reviewed with her. Lung capacity is normal. She also had a chest x-ray which I personally reviewed with her. I did not find any interstitial lung disease. No evidence of any pulmonary hypertension. Her lungs appeared to be slightly larger in size but is likely because of her body type. No evidence of any air trapping or hyperinflation on her PFTs which is reassuring. Therefore, will have her continue the sleep aid and have her repeat the sleep study to make sure that she is not needing to go back on CPAP specially since she had history of it. 06/18/2025 the patient is here for a pulmonary follow-up visit. The patient overall has been doing well. Her daytime drowsiness still elevated 10/20. She did have a in-lab sleep study this time. She did have a hard time staying asleep. She was still able to complete the study. Her AHI was about 12 events an hour although the likely higher if she could sleep the whole night. She had limited REM sleep. The patient is also hypoxic. She would benefit from starting CPAP. Will go ahead and start APAP therapy at this time. Will go with a local [employer] company in order for her to be monitor closely and to be successful with the therapy. Addition to that the patient has been started on trazodone for insomnia. She did well with the initially she tolerated it well and she felt good with it. Although recently she started developing visual hallucinations. She attributed it to the trazodone. Therefore she stopped it and she has not had anymore. She will try melatonin for now. She can use that as needed. [facility] Medical History Limited scleroderma SVT (supraventricular tachycardia) Atrial flutter RINA (obstructive sleep apnea) Social History Patient Tobacco Use Status: Former Tobacco user Review of Systems Const Reports daytime sleepiness, Reports difficulty sleeping, Reports headache(s), Reports snoring and Reports stops breathing during sleep Eyes Reports no additional complaints ENT Denies dysphagia and Reports headache(s) Card Reports palpitations Resp Reports snoring and Denies wheezing GI Denies dysphagia Musc Reports myalgias, Reports arthralgias and Reports limited range of motion Skin/Breast Denies rash Neuro Reports headache(s) Psych Reports visual hallucinations Endo Reports palpitations Aller/Immun Denies wheezing Physical Exam Vital Signs: Last Vital Signs Pulse 68 06/18/25 10:19 BP 108/50 L 06/18/25 10:19 BMI result Body Mass Index 23.5 Const General: comfortable HEENT Head: Yes normocephalic Neck Neck: Yes supple Chest Chest palpation & inspection: normal inspection of the chest Resp Effort & Inspection: normal respiratory effort Auscultation: clear to auscultation bilaterally GI Palpation (GI): Soft to palpation Skin General skin exam: no rashes or lesions noted Extrem General: Yes no clubbing, cyanosis or edema Assessment & Plan Assessment & Plan (1) RINA (obstructive sleep apnea): Code(s): G47.33 - Obstructive sleep apnea (adult) (pediatric) Category: Medical (2) Atrial flutter: Code(s): I48.92 - Unspecified atrial flutter Category: Medical Qualifiers: Atrial flutter type: unspecified Qualified Code(s): I48.92 - Unspecified atrial flutter (3) SVT (supraventricular tachycardia): Code(s): I47.10 - Supraventricular tachycardia, unspecified Category: Medical (4) Limited scleroderma: Comment: Clinically, quiescent. Echo 01/2022 normal. 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 She has history of psoriasis without clinical findings of psoriatic arthritis. I have reassured patient again that she does not have psoriatic arthritis at this time. Rheumatology history: Diagnosed with limited cutaneous systemic sclerosis, seronegative (KRISTIE, anticentromere antibody, anti-SCl70 ab). Presenting with sclerodactyly and Raynaud's phenomenon. She developed thickening of her skin in bilateral forearms 2023 right worse than left but Process Safety Engineer Dr. Marie did not feel that the skin changes were related to scleroderma and biopsy was not warrented. Improving with topical steroid. Code(s): M34.9 - Systemic sclerosis, unspecified Category: Medical Plan stop Trazadone causing visual hallucinations start Melatonin start APAP F/U 4 months Medications: New melatonin 5 mg PO BEDTIME PRN 30 tabs 6RF sleep 30 days Coding Level of Care Code Est Pt Level 4 (48269) Diagnoses RINA (obstructive sleep apnea) G47.33 Atrial flutter, unspecified type I48.92 Atrial flutter type: unspecified SVT (supraventricular tachycardia) I47.10 Limited scleroderma M34.9 Time Spent (min) 16
--- OUTSIDE RECORDS SUMMARY | 2025-06-18 11:08 | XMS_ITS | Clinical Summary ---
Author Organization [facility] Address [address] [address] Phone Care Team Providers Care Director Home Name Role Phone Osmany Duncan MD Primary Care Provider [phone] Cindy Saxena MD Unavailable [phone] Anson Rubin MD Unavailable Allergies Active Allergy Reactions Criticality Noted Date Comments Amoxicillin Rash Low 10/09/2017 Ampicillin Rash Low 10/09/2017 Sulfamethoxazole-Trimeth oprim Rash Low 10/09/2017 Codeine Nausea and/or Vomiting 10/09/2017 Benzalkonium Chloride Hives 02/13/2020 Nirmatrelvir-Ritonavir Other (See Comments) 01/2022 BLURRED VISION Oxycodone-Acetaminophen Nausea and/or Vomiting 10/09/2017 Medications multivitamin per tablet Take 1 tablet by mouth daily. Active metoprolol tartrate (LOPRESSOR) 25 MG tablet Take 25 mg by mouth every 12 (twelve) hours. Active cholecalcifero l (VITAMIN D3) 2,000 unit capsule Take 2,000 Units by mouth daily. Active vit C/E/Zn/coppr/l utein/zeaxan (PRESERVISION AREDS-2 ORAL) Take 1 capsule by mouth 2 (two) times a day. Active calcipotriene 0.005 % solution Apply 1 application. topically 2 (two) times a day as needed. Scalp solution 2 Active calcium carbonate/eugenie min D3 (CALCIUM 600 + D,3, ORAL) Take 600 tablets by mouth daily. Active Medication-Jacques e Text Apply 1 Application topically as needed. Betamethasone solution for scalp Active traZODone (DESYREL) 50 MG tablet Take 25 mg by mouth nightly at bedtime. Active Active Problems Problem Noted Date Diagnosed Date AVNRT (AV geoffrey re-entry tachycardia) 08/22/2024 Overview (08/22/2024): Fol with Dr. Rk Contreras last OV 07/30/24 had ablation in 2007 , also with + raynaud and scleraderma, pulm fibrosis, untreated RINA, anxiety and depression- stable r/t in 1 yr Acute upper respiratory infection 06/04/2024 Assessment & Plan (06/04/2024 3:16 PM EDT): Covid positive, beyond window for treatment. Supportive therapy advised. Warning signs reviewed to call us back Aphthous ulcer of mouth 06/04/2024 Assessment & Plan (06/04/2024 10:59 AM EDT): Open on left lip corner. Advsied salt gargle, Listerine gargle, and can use campho phenique, OTC Weight loss 06/04/2024 Assessment & Plan (06/04/2024 11:01 AM EDT): She has lost weight. Advised heart healthy diet- continue to tract, if loss continues follow up with PCP to evaluate further COVID-19 virus infection 06/13/2022 Assessment & Plan (06/04/2024 3:17 PM EDT): Positive for covid. Onset was 8 days ago. She is improved. Advised her to watch for signs of pneumonia, or dehydration. Should she worsen she should call us back Assessment & Plan (06/13/2022 5:22 PM EDT): This is an audio only visit lasting in total 25 minutes. We discussed the possible treatments and I encouraged her given her absence of vaccination against COVID- 19 to take the paxlovid against the virus. I answered her questions as much as I could in regards to the safety of the medicine and I did explain to her about emergency use only which we felt in this case because of the absence of vaccine was the case. I reviewed the patient's previous labs and we saw in January that she is having a normal creatinine clearance. Her questions answered, I encouraged her to garlic and green tea over the next few days whereby quercetin can be effective against the virus. Drink plenty of fluids, vitamin C, vitamin D. Will call in the full-strength Motion Engineov[employer] to her [facility] pharmacy. Fatigue 04/17/2018 Gastroesophageal reflux disease 04/17/2018 History of atrial flutter 04/17/2018 Hyperlipidemia 04/17/2018 Obstructive sleep apnea syndrome 04/17/2018 Assessment & Plan (06/04/2024 10:58 AM EDT): Not using cpap, advised to call pulm and get on treatment for cpap. Osteopenia 04/17/2018 Raynaud's phenomenon 04/17/2018 Overview (07/24/2024): [facility]- seen 06/24/24 s/s controlled with conservative management advised to see derm for forearm lesion, and f/u with him 3m Pure hypercholesterolemia 04/17/2018 Sleep apnea 04/17/2018 History of supraventricular tachycardia 04/17/20 18 Venous insufficiency 04/17/2018 Primary osteoarthritis 04/17/2018 Encounters Date Type Department Care Team Description 06/10/2025 Telephone [facility] Internal Medicine [address] [place] [address] Osmany Duncan MD medical supply order 05/05/2025 Orders Only [facility] [address] [place] [address] ProviderJosiane MD 03/20/2025 10:00 AM EDT Office Visit [facility] [address] [place] [address] Osmany Duncan MD Routine general medical examination at a health care facility (Primary Dx); Primary osteoarthritis involving multiple joints; Raynaud's phenomenon without gangrene; Limited scleroderma 03/20/2025 Orders Only [facility] Internal Medicine [address] [place] [address] ProviderJosiane MD 03/19/2025 Documentation [facility] [place] [facility] [address] [place] [address] Osmany Duncan MD from Last 3 Months Immunizations Immunization Administration Dates Next Due Influenza High-Dose Quadrivalent Preservative Fr ee IM 08/29/2022,09/22/2020 Influenza High-Dose Trivalent Preservative Free IM 11/21/2019 Influenza Quadrivalent MDCK Preservative Free IM 09/11/2017 Influenza Quadrivalent Preservative Free IM 09/28 Influenza Trivalent Preservative Free IM 016 Influenza Trivalent w/ Preservative IM 4 Influenza, Unspecified Formulation 03/25/2010 Pneumococcal conjugate PCV13 05/13/2019 Pneumococcal polysaccharide PPSV23 01/08/2021, Td, unspecified formulation 07/28/2000 Tdap 05/10/2010 Family History Medical History Relation Comments Heart disease Father Hypertension Mother Relation Status Comments Father (Age 71) Mother (Age 53) Social History Tobacco Use Types Packs/Day Years Used Date Smoking Tobacco: Former Cigarettes 0.1 51.3 S tarted: 02/26/1974 Smokeless Tobacco: Never Tobacco Cessation:Counseling Given: Not Answered Comments:Started in her 20s, quit 29 y/o , was not a heavy smoker just smoked socially. Alcohol Use Standard Drinks/Week Comments Not Currently 0 (1 standard drink = 0.6 oz pur e alcohol) 2 x year Education Answer Date Recorded Are you interested in more education? Not on janet e 03/24/2023 Are you concerned about learning? Not on file 03/24/2023 No 03/24/2023 No 03/24/2023 Digital Access Answer Date Recorded No 04/24/2023 No 04/24/2023 Reliable internet access at home? Not on file 04/24/2023 Device with a working camera? Not on file Intimate Partner Violence Answer Date R ecorded Denied Basic Needs Not on file 03/20/2025 In the past 12 months have y ou been in a relationship with a person who hurts, threatens, or tries to control you? No 03/20/2025 Worried food would run out Not on file 03/20 In the past 12 months have y ou been in a relationship with a person who hurts, threatens, or tries to control you? No 03/20/2025 Comments Unknown Sex and Gender Information Value Date Recorded Sex Assigned at Not on file Legal Sex Female 9:57 PM EDT Gender Identity Not on file Sexual Orientation Not on file Last Filed Vital Signs Vital Sign Reading Time Taken Comments Blood Pressure 93/57 03/20/2025 10:05 AM EDT Pulse 67 03/20/2025 10:05 AM EDT Temperature 36.1 C (96.9 F) 03/20/2025 10:05 AM EDT Respiratory Rate 20 03/20/2025 10:0 5 AM EDT Oxygen Saturation 99% 03/20/2025 10: 05 AM EDT Inhaled Oxygen Concentration - - Weight 67.9 kg (149 lb 12.8 oz) 025 10:05 AM EDT Height 170.2 cm (5' 7.01 ) 03/20/2025 1 0:05 AM EDT Body Mass Index 23.46 03/20/2025 10:05 AM EDT Plan of Treatment Upcoming Encounters Date Type Department Care Team (Late st Contact Info) Description 03/25/2026 10:00 AM EDT Office Visit [facility] [place] [facility] [address] [place] [address] Osmany Duncan MD [address] [place] [address] [email or web address] Health Maintenance Due Date Last Done Comments SMOKING Hx and SMOKELESS TOBACCO SCREENING 1967 COLOGUARD 1999 FIT TEST 1999 FOBT 1999 SIGMOIDOSCOPY 1999 VIRTUAL COLONOSCOPY 1999 ZOSTER VACCINES (1 of 2) 2004 RSV VACCINE (1 - Risk 60-74 years 1-dose series) 2014 Adult Td,Tdap Booster 05/10/2020 05/10/2010, 000 COVID-19 VACCINE ( season) 2024 DEPRESSION SCREENING 03/20/2026 03/20/2025 FOLLOW UP BONE DENSITY TESTING 04/12/2026 04/12/2024, 03/29/2022, 03/11/2022, Additional history exists COLONOSCOPY 06/02/2026 06/02/2016, 05/2016, 06/01/2016 COLORECTAL CANCER SCREENING 06/02/2026 MAMMOGRAM 04/25/2027 04/25/2025, 03/27, 03/30/2023, Additional history exists LIPID PANEL 03/13/2030 03/13/2025, 02/25, 03/13/2025, Additional history exists HEPATITIS C SCREENING Completed 11/21/2019 PNEUMOCOCCAL VACCINES (50+ years) Completed 01/08/2021, 05/13/2019, 10/27/2006 OSTEOPOROSIS SCREENING INITIAL (ONE-TIME) Completed 04/12/2024, 03/29/2022, 03/11/2022, Additional history exists HEPATITIS A VACCINES Aged Out No long er eligible based on patient's age to complete this topic HIB VACCINES Aged Out No longer eligi ble based on patient's age to complete this topic MENINGOCOCCAL VACCINES (ACWY) Aged Out No longer eligible based on patient's age to complete this topic MENINGOCOCCAL VACCINES (B) Aged Out N o longer eligible based on patient's age to complete this topic Medical Devices Not on file Procedures Procedure Name Priority Date/Time Associated Diagnosis Comments HM MAMMOGRAPHY Routine 04/25/2025 10:18 AM EDT OUTSIDE HDL Routine 03/13/2025 BD DXA SCREENING Routine 04/12/2024 11:1 7 AM EDT Postmenopausal estrogen deficiency HM COLONOSCOPY FOR RESULT ENTRY ONLY Routine 06/02/2016 from Last 3 Months or Most Recently Relevant to Health Maintenance Results * MAMMOGRAPHY FOR RESULT ENTRY ONLY (04/25/2025 10:18 AM EDT) us Historical Provider MD HEALTH MAINTENANCE Final Result * Outside HDL (03/13/2025) HDL - External 61 40 - 80 mg/dL EXTERNAL NON-INTERFACED REF LAB Historical Provider LAB BLOOD ORDERABLES Samra l Result EXTERNAL NON-INTERFACED REF LAB * DXA Screening (04/12/2024 11:17 AM EDT) Anatomical Region Laterality Modality Bone Density Bone Density Osmany Duncan MD IMG BD BONE DENSITY DEXA Samra l Result * COLONOSCOPY FOR RESULT ENTRY ONLY (06/02/2016) Pathologist [facility] Colonoscopy hyperplasti c, 10 yr recall Historical Provider HEALTH MAINTENANCE Edited Result - Final from Last 3 Months or Most Recently Relevant to Health Maintenance Insurance [employer] H[employer] REPLACEMENT [employer]PLACEMENT Member Subscriber Plan / Payer (Ef fective 2018-Present) Name:Rebecca Francis Relation to Subscriber:Self Name:Rebecca Francis Payer ID:Not on file Type:Medicare Address: [place] [id number] [place] [address] MEDICARE HMO REPLACEMENT [employer] REPLACEMENT [employer] MEDIC[employer] HMO [place] [address] MEDICARE HMO REPLACEMENT [employer] MEDIC[employer] HMO [place] [address] MEDICARE HMO REPLACEMENT Care Teams Director Home Relationship Specialty Start Date End Date Osmany Duncan MD [address] [place] [address] [email or web address] PCP - General 09/14/17 Cindy Saxena MD [address] [place] [address] Drive [address] [place] [address] Obstetrics and Gynecology 05/21/20 Anson Rubin MD [address] [place] [phone] Physical Medicine and Rehabilitation 06/02/20 Additional Source Comments The information contained in this document represents components of the legal health record. It is not the complete legal health record.[facility]
--- OUTSIDE RECORDS SUMMARY | 2025-06-18 11:08 | XMS_ITS | Clinical Summary ---
Author Organization [facility] Address [address] [place] [id number] Care Team Providers Care Director Of Audiology Name Role Phone Osmany Duncan MD Primary Care Provider [phone] Allergies Active Allergy Reactions Criticality Noted Date [...] (calcinosis, Raynaud's phenomenon, esophageal dysfunction, sclerodactyly, telangiectasia) ([facility] V24, [facility] V28) 12/06/2018 RINA (obstructive sleep apnea) 12/06/2018 Overview (01/20/2025): 12/2018 Home Sleep Study did not reveal sleep apnea. Raynaud disease 12/06/2018 Encounters Date Type Department Care Team Description 04/09/2025 Telephone [facility] Cardiology [facility] [address] [place] [address] Rk Contreras MD from Last 3 Months Surgical History Surgery Date Site/Laterality Comments OTHER SURGICAL HISTORY 2007 PROCEDURE: LA ABLATE L/R ATRIAL FIBRIL W/ISOLATED PULM VEIN; COMMENT: Cardiac Albation Medical History Medical History Date Comments Anxiety 02/12/2019 DX:Anxiety Depression 02/12/2019 DX:Depression History of supraventricular tachycardia 12/06/2018 DX:History of supraventricul ar tachycardia; COMMENT: 2007 Ablation Pulmonary fibrosis ([facility] V24, [facility] V28) 02/12/2019 DX:Pulmonary fibrosis (HCC) CREST (calcinosis, Raynaud's phenomenon, esophageal dysfunction, sclerodactyly, telangiectasia) ([facility] V24, [facility] V28) 12/06/2018 DX:CREST (calcinosis, Angeline ud's phenomenon, esophageal dysfunction, sclerodactyly, telangiectasia) ([facility]) RINA (obstructive sleep apnea) 12/06/2018 [...] Care Team (Late st Contact Info) Description 06/20/2025 1:30 PM EDT Ancillary Procedure [facility] Cardiology [facility] [address] [place] [phone] 08/13/2025 10:40 AM EDT Office Visit [facility] [address] [place] [address] [place] [phone] Manuel Spann NP [address] [place] [address] [address] [place] [address] Health Maintenance Due Date Last Done Comments Breast Cancer Screening 1955 DTaP,Tdap,and Td Vaccines (1 - Tdap) 1973 Pneumococcal Vaccine: 50+ Ye ars (1 of 1 - PCV) 2004 Zoster Vaccines (1 of 2) 2004 Colorectal Cancer Screening: Colonoscopy 10/29/2022 Falls Risk Assessment 10/29/2022 Hepatitis C Screening 10/29/2022 Medicare Annual Wellness Visit 10/29/2022 Osteoporosis Screening (Bone Density Screening) 10/29/2022 Social Influencers of Health Screening 10/29/2022 COVID-19 Vaccine ( - 2023-2 5 season) 2024 Depression Screening 11/27/2024 Influenza Vaccine (#1) 2025 RSV Immunization Adult Patie nts (1 [...] [employer] Care Teams Director Of Audiology Relationship Specialty Start Date End Date Osmany Duncan MD [address] [place] [id number] PCP - General Internal Medicine 06/03/13
--- OUTSIDE RECORDS SUMMARY | 2025-06-18 11:09 | XMS_ITS | Patient Health Record ---
[facility] Address [address] [place] [address] Care Team Providers Care Payroll Administrator Name Role Phone Osmany Duncan MD Primary Care Provider Kyle Jauregui Unavailable [phone] Allergies Allergen (clinical drug ingredient) Drug/Non Drug Allergy documented on EMR Reaction Allergy Type Onset Date Status sulfamethoxazole / trimethoprim Bactrim rash Drug Allergy Active erythromycin Erythromycin red rash Drug Allergy A ctive acetaminophen / oxycodone Percocet Unknown Drug Allergy Active Merthiolate hives Drug Allergy Activ e codeine Codeine nausea and vomiting Drug Allergy [...] 100 MG 1 capsule Orally Once a day; Duration: 10 days 04/03/2023 Active Vitamin D Active [...] breakdown of skin (L97.521) Active confirmed Problem Raynaud's disease (195383066) Raynaud's disease without gangrene (I73.00) Active confirmed Problem Scleroderma (164214305) Scleroderma (M34.9) Active confirmed Problem Raynaud's disease (388135167) Raynauds disease without gangrene (I73.00) Active confirmed Plan Of Treatment Pending Test Test Name Order Date [id number] Plate 10/30/2017 [id number] Plate 03/02/2018 [id number] Plate 05/08/2018 Insurance Providers Payer Name Payer Address Payer Phone Subscriber Number Group Number Insured Name Patient Relationship to Insured Coverage Start Date Coverage End Date [employer] [place] [employer]vantage [facility] [address] [facility] RAHUL ruiz [id number] Rebecca Francis Self - patient is the insured Medical (General) History Medical History History ICD Code Diverticulosis Chicken pox Measles Mumps Raynauds syndrome Reflux Scleroderma Surgical History Surgery Date(Month/Year) thyroid 2007 cardiac ablation 2007
--- OUTSIDE RECORDS SUMMARY | 2025-06-18 11:09 | XMS_ITS | Patient Health Record ---
Author Organization [facility] Address [address] [place] [address] Care Team Providers Care Web Publisher Name Role Phone Osmany Duncan MD Primary Care Provider Bhavesh Morin Unavailable [phone] Allergies Allergen (clinical drug ingredient) Drug/Non Drug Allergy documented on EMR Reaction Allergy Type Onset Date Status acetaminophen / oxycodone Percocet Unknown Drug Allergy Active codeine Codeine Sulfate Unknown Drug Allergy A ctive sulfamethoxazole / trimethoprim Bactrim Unknown Drug Allergy Active amoxicillin Amoxicillin Unknown Drug Allergy Act stefania Merthiolate Unknown Drug Allergy Activ e Reason For Referral No Information Medications Medication SIG (Take, Route, Frequency, Duration) Notes Start Date End Date Status Tums 500 MG 1 tablet Orally prn Active MiraLax 1 1 bottle as directed Orally Once for 1 dose 04/01/2016 Active Dulcolax 5 MG 4 tablets as directe d Orally Once for 1 dose 04/01/2016 Active Problems Problem Type SNOMED Code ICD Code Onset Dates Problem Status W/U Status Risk Notes Problem 756661440 Encounter for screening for malignant neoplasm of colon (Z12.11) Active confirmed Problem Screening for malignant neoplasm of rectum (218896960) Encounter for screening for malignant neoplasm of rectum (Z12.12) Active confirmed Problem 613744627 Abdominal pain, left lower quadrant (R10.32) Active confirmed Problem 628507112 Abnormal CT scan, sigmoid colon (R93.3) Active confirmed Plan Of Treatment Future Test Test Name Order Date COLONOSCOPY 03/31/2016 Insurance Providers Payer Name Payer Address Payer Phone Subscriber Number Group Number Insured Name Patient Relationship to Insured Coverage Start Date Coverage End Date [facility] [address] [place] [phone] [id number] DARLING CHUNG Self - patient is the insured Medical (General) History Medical History History ICD Code Denies [place],DM,CVA,Lung disease,renal dise ase Scleroderma(limited)--Raynaud's Negative colonoscopy in 04/2005 except fo r internal hemorrhoids Cardiac ablation 2006--SVT--Dr. Silver Surgical History Surgery Date(Month/Year) Appendectomy Laparoscopy Benign breast biopsy Thyroid nodule removal-benign
== END 2025-06-18 10:46 | disposition home or self-care (01) ==
LOC: HO.HPS 10:12
PROVIDERS: PCP Internal Medicine; Visit Provider Hospitalist
DX: G47.33 Obstructive sleep apnea (adult) (pediatric) (principal); I48.92 Unspecified atrial flutter; I47.10 Supraventricular tachycardia, unspecified; M34.9 Systemic sclerosis, unspecified
CPT/HCPCS: 99214

== ENCOUNTER → 2025-06-18 10:11 | Outpatient (BNVA) | payer MEDICARE, SELFPAY | PROVIDERS: PCP Internal Medicine; Visit Provider Hospitalist | DX: G47.33 Obstructive sleep apnea (adult) (pediatric) (principal); I48.92 Unspecified atrial flutter; I47.10 Supraventricular tachycardia, unspecified; M34.9 Systemic sclerosis, unspecified | CPT/HCPCS: 99212 ==

== ENCOUNTER 2025-10-09 13:38 | Outpatient (AMB) | payer MEDICARE, SELFPAY ==
[2025-10-09 14:00] VITALS: BP 122/62; PULSE 83; O2SAT 95; BMI 22.6
--- NOTE | 2025-10-09 14:00 | MHC.OFFVIS ---
Vital Signs 10/09/25 14:00 Height 5 ft 7.5 in Weight 146 lb 9.718 oz BMI 22.6 BP 122/62 Blood Pressure Location Lt brachial Position Sitting Pulse 83 Pulse Source Pulse Oximeter Pulse Oximetry (%) 95 Oxygen Delivery Method Room Air Intake Visit Reasons: Obstructive sleep apnea Accompanied by: Self / Same As Patient Allergies trazodone Adverse Reaction (Intermediate, Verified 10/09/25 14:30) Hallucinations amoxicillin Allergy (Unknown, Uncoded 12/26/24 15:42) rash bactrim Allergy (Unknown, Uncoded 12/26/24 15:42) facial redness codeine Allergy (Unknown, Uncoded 12/26/24 15:42) vomiting percocet Allergy (Unknown, Uncoded 12/26/24 15:42) vomiting HPI Comments Details: The patient is a 70-year-old woman with a known history of limited scleroderma, pulmonary fibrosis, sleep apnea on CPAP in addition to cardiac arrhythmia. Apparently she was diagnosed with atrial fibrillation atrial flutter and did require ablation. Currently on medication. The patient has been demonstrating worsening daytime drowsiness. Her Ellsworth score is elevated 10/20. The patient had been on CPAP many years ago. with her worsening daytime drowsiness in his significant cardiac arrhythmia history the patient benefits from an in-lab sleep study at this time. She also states that she does have increasing dyspnea on exertion. Psxj-dd-gzzdzaxr severity. Th patient denies any worsening Dysphagia. She has not had any recent imaging studies to assess for any pulmonary fibrosis. She does get Raynaud's although denies any necrosis or ischemia to the tip fingers. 12/26/2024 the patient is here for a pulmonary follow-up visit. Overall she is doing okay. She seems to be sleeping okay although very fragmented sleep. She did undergo the in-lab sleep study in though she was able to fall asleep initially she woke up multiple times and then after 01:00 o'clock in the morning she could not go back to bed. Therefore, her study was inconclusive. We did review her sleep study that she had back in 2018 that was a home sleep study in that was also inconclusive. Prior to that in 2014 she had a sleep study that demonstrated significant sleep apnea. She does have a cardiac history and also history of limited scleroderma. I did review her echocardiogram which is reassuring. She is scheduled to have PFTs and also a chest x-ray in the coming weeks. Will plan to start her on trazodone to help her with sleep and then plan to repeat her sleep study when she is doing better with her sleep habit. Hopefully we can reassess her sleep study based on her nondiagnostic recent study. Will follow-up in 3 months if any issues arise she will call for an earlier assessment. 03/18/2025 the patient is here for a pulmonary follow-up visit. Overall she is doing well. She is using the trazodone with good effect. She is able to sleep much better throughout the nighttime. She sometimes has vivid dreams. I do believe that is likely that she has catching up with all the REM sleep that she could not have before. She is still waking up tired. Her Ellsworth score still elevated event over 24. She also has a flutter. Her last sleep study was inconclusive because of the fact that she could not sleep. Will plan to continue the trazodone especially since his working well will plan to repeat the sleep study sometime May. Patient follow-up after that. She did undergo pulmonary function studies which I personally reviewed with her. Lung capacity is normal. She also had a chest x-ray which I personally reviewed with her. I did not find any interstitial lung disease. No evidence of any pulmonary hypertension. Her lungs appeared to be slightly larger in size but is likely because of her body type. No evidence of any air trapping or hyperinflation on her PFTs which is reassuring. Therefore, will have her continue the sleep aid and have her repeat the sleep study to make sure that she is not needing to go back on CPAP specially since she had history of it. 06/18/2025 the patient is here for a pulmonary follow-up visit. The patient overall has been doing well. Her daytime drowsiness still elevated 10/20. She did have a in-lab sleep study this time. She did have a hard time staying asleep. She was still able to complete the study. Her AHI was about 12 events an hour although the likely higher if she could sleep the whole night. She had limited REM sleep. The patient is also hypoxic. She would benefit from starting CPAP. Will go ahead and start APAP therapy at this time. Will go with a local [employer] company in order for her to be monitor closely and to be successful with the therapy. Addition to that the patient has been started on trazodone for insomnia. She did well with the initially she tolerated it well and she felt good with it. Although recently she started developing visual hallucinations. She attributed it to the trazodone. Therefore she stopped it and she has not had anymore. She will try melatonin for now. She can use that as needed. 10/09/2025 the patient is here for pulmonary follow-up visit. The patient overall has been doing okay. She did start using the CPAP in the PAP therapy has been affecting beneficial. She does use it for more than 4 hours a night. She actually Use it about 9 hours last night and she actually slept good. Although she is still struggling with the mask. She initially started with a fullface mask but irritated the nasal bridge causing Her sore spot. Ultimately switched over to an F 40 medium mask that seems to leak frequently. It also causes her to have an irritation in the back of her skull. Therefore she needs something lightened small and I did recommend she can try the P 10. I did call regional to see if they can do fitting for her. I think the P 10 with a chinstrap will be the best option for her. Her AHI is down to 2.6 which is reassuring. I did increase her maximum pressure from 14-16 at this time. She will continue to use it therapy as prescribed. She will continue to use her medications as prescribed. She will follow-up in the springtime for further evaluation. [facility] Medical History Limited scleroderma SVT (supraventricular tachycardia) Atrial flutter RINA (obstructive sleep apnea) Social History Patient Tobacco Use Status: Former Tobacco user Review of Systems Const Reports daytime sleepiness, Reports difficulty sleeping, Reports headache(s), Denies snoring and Denies stops breathing during sleep Eyes Reports no additional complaints ENT Denies dysphagia and Reports headache(s) Card Reports palpitations Resp Denies snoring and Denies wheezing GI Denies dysphagia Musc Reports myalgias, Reports arthralgias and Reports limited range of motion Skin/Breast Denies rash Neuro Reports headache(s) Psych Reports visual hallucinations Endo Reports palpitations Aller/Immun Denies wheezing Physical Exam Vital Signs: Last Vital Signs Pulse 83 10/09/25 14:00 BP 122/62 10/09/25 14:00 Pulse Ox 95 10/09/25 14:00 Oxygen Delivery Method Room Air 10/09/25 14:00 BMI result Body Mass Index 22.6 Const General: comfortable HEENT Head: Yes normocephalic Neck Neck: Yes supple Chest Chest palpation & inspection: normal inspection of the chest Resp Effort & Inspection: normal respiratory effort Auscultation: clear to auscultation bilaterally GI Palpation (GI): Soft to palpation Skin General skin exam: no rashes or lesions noted Extrem General: Yes no clubbing, cyanosis or edema Assessment & Plan Assessment & Plan (1) RINA (obstructive sleep apnea): Code(s): G47.33 - Obstructive sleep apnea (adult) (pediatric) Category: Medical (2) Atrial flutter: Code(s): I48.92 - Unspecified atrial flutter Category: Medical Qualifiers: Atrial flutter type: unspecified Qualified Code(s): I48.92 - Unspecified atrial flutter (3) SVT (supraventricular tachycardia): Code(s): I47.10 - Supraventricular tachycardia, unspecified Category: Medical (4) Limited scleroderma: Comment: Clinically, quiescent. Echo 01/2022 normal. Her acid cutter is retiring this year. She has history of psoriasis without clinical findings of psoriatic arthritis. I have reassured patient again that she does not have psoriatic arthritis at this time. Rheumatology history: Diagnosed with limited cutaneous systemic sclerosis, seronegative (KRISTIE, anticentromere antibody, anti-SCl70 ab). Presenting with sclerodactyly and Raynaud's phenomenon. She developed thickening of her skin in bilateral forearms 2023 right worse than left but [employer] Dr[employer] Machine Operator Dr. Marie did not feel that the skin changes were related to scleroderma and biopsy was not warrented. Improving with topical steroid. Code(s): M34.9 - Systemic sclerosis, unspecified Category: Medical Plan stop Trazadone causing visual hallucinations Melatonin continue APAP, adjusted 6-14 to 6-16, needs re fitting with pillows F/U 4 months Coding Level of Care Code Est Pt Level 4 (73959) Diagnoses RINA (obstructive sleep apnea) G47.33 Atrial flutter, unspecified type I48.92 Atrial flutter type: unspecified SVT (supraventricular tachycardia) I47.10 Limited scleroderma M34.9 Time Spent (min) 17
--- OUTSIDE RECORDS SUMMARY | 2025-10-09 17:01 | XMS_ITS | Patient Health Record ---
Author Organization [facility] Address [address] [place] [address] Care Team Providers Care Conical Mixer Name Role Phone sOmany Duncan MD Primary Care Provider Bhavesh Morin Unavailable [phone] Allergies Allergen (clinical drug ingredient) Drug/Non Drug Allergy documented on EMR Reaction Allergy Type Onset Date Status Merthiolate Unknown Drug Allergy Activ e acetaminophen / oxycodone Percocet Unknown Drug Allergy Active codeine Codeine Sulfate Unknown Drug Allergy A ctive sulfamethoxazole / trimethoprim Bactrim Unknown Drug Allergy Active amoxicillin Amoxicillin Unknown Drug Allergy Act stefania Reason For Referral No Information Medications Medication SIG (Take, Route, Frequency, Duration) Notes Start Date End Date Status Tums 500 MG 1 tablet Orally prn Active MiraLax 1 1 bottle as directed Orally Once; Duration: 1 dose 04/01/2016 Active Dulcolax 5 MG 4 tablets as directe d Orally Once; Duration: 1 dose 04/01/2016 Active Problems Problem Type SNOMED Code ICD Code Onset Dates Problem Status W/U Status Risk Notes Problem Screening for malignant neoplasm of colon (879553455) Encounter for screening for malignant neoplasm of colon (Z12.11) Active confirmed Problem Screening for malignant neoplasm of rectum (451532783) Encounter for screening for malignant neoplasm of rectum (Z12.12) Active confirmed Problem Left lower quadrant pain (929565504) Abdominal pain, left lower quadrant (R10.32) Active confirmed Problem Abnormal CT scan, sigmoid colon (R93.3) Active confirmed Plan Of Treatment Future Test Test Name Order Date COLONOSCOPY 03/31/2016 Insurance Providers Payer Name Payer Address Payer Phone Subscriber Number Group Number Insured Name Patient Relationship to Insured Coverage Start Date Coverage End Date [facility] [address] [place] [phone] [id number] DARLING CHUNG Self - patient is the insured Medical (General) History Medical History History ICD Code Denies [place],DM,CVA,Lung disease,renal dise ase Scleroderma(limited)--Raynaud's Negative colonoscopy in 04/2005 except fo r internal hemorrhoids Cardiac ablation 2006--SVT--Dr. Silver Surgical History Surgery Date(Month/Year) Appendectomy Laparoscopy Benign breast biopsy Thyroid nodule removal-benign
--- OUTSIDE RECORDS SUMMARY | 2025-10-09 17:01 | XMS_ITS | Clinical Summary ---
Author Organization [facility] Address [address] [address] Phone Care Team Providers Care Sterile Instrument Technician Name Role Phone Osmany Duncan MD Primary Care Provider [phone] Cindy Saxena MD Unavailable [phone] Anson Rubin MD Unavailable [phone] Allergies Active Allergy Reactions Criticality Noted Date [...] vitamin D. Will call in the full-strength [employer] to her [facility] pharmacy. 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 Immunizations Immunization Administration Dates Next Due INFLUENZA, SPLIT VIRUS, TRIVALENT PF 09/27/2016 INFLUENZA, SPLIT VIRUS, TRIVALENT W/ PRESERVATIV E IM 10/17/2014 Influenza High-Dose Quadrivalent Preservative Fr ee IM 08/29/2022,09/22/2020 Influenza High-Dose Trivalent Preservative Free IM 11/21/2019 Influenza Quadrivalent MDCK Preservative Free IM 09/11/2017 Influenza Quadrivalent Preservative Free IM 09/28 Influenza, Unspecified Formulation 03/25/2010 Pneumococcal conjugate PCV13 05/13/2019 Pneumococcal polysaccharide PPSV23 01/08/2021, Td, unspecified formulation 07/28/2000 Tdap 05/10/2010 Family History Medical History Relation Comments Heart disease Father Hypertension Mother Relation Status Comments Father (Age 71) Mother (Age 53) Social History Tobacco Use Types Packs/Day Years Used Date Smoking Tobacco: Former Cigarettes 0.1 51.6 S tarted: 02/26/1974 Smokeless Tobacco: Never Tobacco [...] Upcoming Encounters Date Type Department Care Team (Ernesto carnes Contact Info) Description 03/25/2026 10:00 AM EDT Office Visit [facility] [address] [place] [address] Osmany Duncan MD [address] [place] [address] Health Maintenance Due Date Last Done Comments SMOKING Hx and SMOKELESS TOBACCO SCREENING 1967 COLOGUARD 1999 FIT TEST 1999 FOBT 1999 SIGMOIDOSCOPY 1999 VIRTUAL COLONOSCOPY 1999 ZOSTER VACCINES (1 of 2) 2004 Adult Td,Tdap Booster 05/10/2020 05/10/2010, 000 INFLUENZA VACCINE (#1) 2025 , 09/22/2020, 11/21/2019, Additional history exists COVID-19 VACCINE ( - 2024- season) 2025 DEPRESSION SCREENING 03/20/2026 03/20/2025 FOLLOW UP BONE DENSITY TESTING 04/12/2026 04/12/2024, 03/29/2022, 03/11/2022, Additional history exists COLONOSCOPY 06/02/2026 06/02/2016, 070 05/2016, 06/01/2016 COLORECTAL CANCER SCREENING 06/02/2026 MAMMOGRAM 04/25/2027 04/25/2025, 03/27, 03/30/2023, Additional history exists RSV VACCINE (1 - 1-dose 75+ series) 2029 LIPID PANEL 03/13/2030 03/13/2025, 02/25, 03/13/2025, Additional [...] RESULT ENTRY ONLY (04/25/2025 10:18 AM EDT) Historical Provider HEALTH MAINTENANCE Final Result * Outside HDL (03/13/2025) HDL - External 61 40 - 80 mg/dL EXTERNAL NON-INTERFACED REF LAB Historical Provider LAB BLOOD ORDERABLES Samra l Result EXTERNAL NON-INTERFACED REF LAB * DXA Screening (04/12/2024 11:17 AM EDT) Anatomical Region Laterality Modality Bone Density Bone Density Osmany Duncan MD IMG BD BONE DENSITY DEXA Samra l Result * HM COLONOSCOPY FOR RESULT ENTRY ONLY (06/02/2016) Colonoscopy hyperplasti c, 10 yr recall Historical Provider HEALTH MAINTENANCE Edited Result - Final from Last 3 Months or Most Recently Relevant to Health Maintenance Insurance [employer] [place] [address] [place] [address] MEDICARE HMO REPLACEMENT [employer] HMO [place] [address] [place] [address] MEDICARE HMO REPLACEMENT [employer] [place] [employer] H[employer] REPLACEMENT [employer] [place] [employer] HMO REPLACEMENT [employer] [place] [employer] H[employer] REPLACEMENT [employer] [place] HMO REPLACEMENT [employer] H[employer] REPLACEMENT Care Teams Sterile Instrument Technician Relationship Specialty Start Date End Date Osmany Duncan MD [address] [place] [id number] PCP - General 09/14/17 Cindy Saxena MD [address] [place] [address] Drive [address] [place] [address] Obstetrics and Gynecology 05/21/20 Anson Rubin MD [address] [place] [phone] Physical Medicine and Rehabilitation 06/02/20 Additional Source Comments The information contained in this document represents components of the legal health record. It is not the complete legal health record.[facility]
--- OUTSIDE RECORDS SUMMARY | 2025-10-09 17:01 | XMS_ITS | Clinical Summary ---
Author Organization [address] [place] [address] [place] [phone] Phone Care Team Providers Care City Controller Name Role Phone Osmany Duncan MD Primary Care Provider [phone] Allergies Active Allergy Reactions Criticality Noted Date Comments Amoxicillin 11/05/2020 Other Reaction(s): Hives/Urticaria Codeine Nausea And Vomiting 11/05/2020 Other 11/05/2020 Merthiolate [Neosporin Wound Cleanser] Other Reaction(s): Hives/Urticaria Oxycodone Nausea And Vomiting 11/05/2020 Percocet [Apap-fd&c Blue #1-oxycodone] Oxycodone Hcl 03/27/2023 Sulfa (Sulfonamide Antibiotics) 11/05/2020 Other Reaction(s): Hives/Urticaria Thimerosal 03/27/2023 When reviewed with patient - she is unclear if this is actually reaction but wishes to leave it documented Trimethoprim 03/27/2023 When reviewed with patient - she is unclear if this is actually reaction but wishes to leave it documented Medications CALCIUM CARBONATE ORAL Take 600 mg by [...] mouth 1 (one) time each day. 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 Will trial metoprolol as prn especially given successful ablation and that she is now treating RINA with CPAP. She will take 12.5 mg twice daily for the next two weeks and then stop completely. She is aware to contact the office with any sustained or severe symptoms. Orders: ECG 12 lead metoprolol tartrate (LOPRESSOR) 25 mg tablet; Take 1 tablet (25 mg total) by mouth 1 (one) time each day if needed (palpitations). Asymptomatic varicose veins of both lower extrem ities 08/13/2025 Assessment & Plan (08/15/2025 10:18 AM EDT): Edema likely secondary to venous insufficiency. Continue with compression stockings. Educated about reducing sodium intake, elevation of extremities while seated, weight loss and exercise. Anxiety 02/12/2019 Overview (08/13/2025): Isolated to episode of SVT. Not chronically anxious. Pulmonary fibrosis (CMS/HCC V24, CMS/HCC V28) CREST (calcinosis, Raynaud's phenomenon, esophageal dysfunction, sclerodactyly, telangiectasia) (CMS/HCC V24, CMS/HCC V28) 12/06/2018 RINA (obstructive sleep apnea) 12/06/2018 Overview (08/13/2025): June 2025 - full mask CPAP Assessment & Plan (08/15/2025 10:18 AM EDT): Having more energy and feeling more awake. Adherent with CPAP nightly. Raynaud disease 12/06/2018 Assessment & Plan (08/15/2025 10:18 AM EDT): Symptoms starting to worsen with colder weather. Will trial off metoprolol which may improve symptoms. She is aware to use gloves and hand warmers. Encounters Date Type Department Care Team Description 08/13/2025 10:40 AM EDT Office Visit [facility] [address] [place] [address] Manuel Spann NP AVNRT (AV geoffrey re-entry tachycardia) ([facility]/HCC V24) (Primary Dx); RINA (obstructive sleep apnea); Raynaud's disease without gangrene; Asymptomatic varicose veins of both lower extremities from Last 3 Months Surgical History Surgery Date Site/Laterality Comments OTHER SURGICAL HISTORY 2007 PROCEDURE: IA ABLATE L/R ATRIAL FIBRIL W/ISOLATED PULM VEIN; COMMENT: Cardiac Albation Medical History Medical History Date Comments Anxiety 02/12/2019 DX:Anxiety Depression 02/12/2019 DX:Depression History of supraventricular tachycardia 12/06/2018 DX:History of supraventricul ar tachycardia; COMMENT: 2008 Ablation Pulmonary fibrosis (CMS/HCC V24, CMS/HCC V28) 02/12/2019 DX:Pulmonary fibrosis (HCC) CREST (calcinosis, Raynaud's phenomenon, esophageal dysfunction, sclerodactyly, telangiectasia) (CMS/HCC V24, CMS/HCC V28) 12/06/2018 DX:CREST (calcinosis, Angeline ud's phenomenon, esophageal dysfunction, sclerodactyly, telangiectasia) ([facility]) RINA (obstructive sleep apnea) 12/06/2018 DX [...] Sign Reading Time Taken Comments Blood Pressure 124/70 08/13/2025 10:45 AM EDT Pulse 72 08/13/2025 10:45 AM EDT Temperature - - Respiratory Rate - - Oxygen Saturation 100% 08/13/2025 10:45 AM EDT Inhaled Oxygen Concentration - - Weight 68.1 kg (150 lb 1.6 oz) 08/13/2025 10:45 AM EDT Height 171.5 cm (5' 7.5 ) 08/13/2025 10:45 AM ED T Body Mass Index 23.16 08/13/2025 10:45 AM EDT Plan of Treatment Health Maintenance Due Date Last Done Comments Breast Cancer Screening 1955 Colorectal Cancer Screening: Colonoscopy 1955 Zoster Vaccines (1 of 2) 2004 Cholesterol Screening (Lipid Panel) 10/29/2022 Falls Risk Assessment 10/29/2022 Hepatitis C Screening 10/29/2022 Medicare Annual Wellness Visit 10/29/2022 Osteoporosis Screening (Bone Density Screening) 10/29/2022 Social Influencers of Health Screening 10/29/2022 Depression Screening 11/27/2024 COVID-19 Vaccine ( - 2024- season) 2025 Influenza Vaccine (#1) 2025 , 09/22/2020, 11/21/2019, Additional history exists RSV Immunization Adult Patients (1 - 1-dose 75+ series) 2029 DTaP,Tdap,and Td Vaccines (4 - Td or Tdap) 06/16/2035 06/16/2025, 05/10/2010, 07/28/2000 Pneumococcal Vaccine: 50+ Years Completed 01/08/2021, 05/13/2019, 10/27/2006 HIB Vaccines Aged Out No longer eligi [...] to complete this topic RSV Immunization Patients Under 20 months Aged Out No longer eligible based on patient's age to complete this topic Varicella Vaccines Aged Out No longer eligible based on patient's age to complete this topic Procedures Procedure Name Priority Date/Time Associated Diagnosis Comments ECG 12-LEAD Routine 08/13/2025 10:59 AM EDT AVNRT (AV geoffrey re-entry tachycardia) ([facility] V24) from Last 3 Months Results * ECG 12 lead (08/13/2025 10:59 AM EDT) Ventricular Rate ECG 72 BPM GEMUSE Atrial Rate 72 BPM GEMUSE P-R Interval 176 ms GEMUSE QRS Duration 94 ms GEMUSE Q-T Interval 412 ms GEMUSE QTc 451 ms GEMUSE P Wave [place] 78 degrees GEMUSE R [place] 82 degrees GEMUSE T [place] 79 degrees GEMUSE ECG Interpretation Sinus rhythm with occasional Premature ventricular complexes Incomplete right bundle branch block Borderline ECG No previous ECGs available Confirmed by Julio BRIGGS JAMES ([id number]) on 08/13/2025 4:03:31 PM GEMUSE 08/13/2025 10:5 9 AM EDT 08/13/2025 4:03 PM EDT us Manuel Spann TRANSFORMATION LEAD ECG ORDERABLES Final Resul t GEMUSE from Last 3 Months Insurance [employer] Care Teams City Controller Relationship Specialty Start Date End Date Osmany Duncan MD [address] [place] [phone] PCP - General Internal Medicine 06/03/13
--- OUTSIDE RECORDS SUMMARY | 2025-10-09 17:01 | XMS_ITS | Patient Health Record ---
[facility] Organization [facility] Address [address] [place] [address] Care Team Providers Care Director Of Trauma Name Role Phone Osmany Duncan MD Primary Care Provider Kyle Mercedes Unavailable [phone] Allergies Allergen (clinical drug ingredient) Drug/Non Drug [...] skin (L97.521) Active confirmed Problem Raynaud's disease (007121629) Raynaud's disease without gangrene (I73.00) Active confirmed Problem Scleroderma (925698538) Scleroderma (M34.9) Active confirmed Problem Raynaud's disease (483176800) Raynauds disease without gangrene (I73.00) Active confirmed Plan Of Treatment Pending Test Test Name Order Date [id number] Plate 10/30/2017 [id number] Plate 03/02/2018 [id number] Plate 05/08/2018 Insurance Providers Payer Name Payer Address Payer Phone Subscriber Number Group Number Insured Name Patient Relationship to Insured Coverage Start Date Coverage End Date [employer] [place] [employer]vantage [facility] [address] [facility] [place], [place] [address] [phone] [id number] Rebecca Francis Self - patient is the insured Medical (General) History Medical History History ICD Code Diverticulosis Chicken pox Measles Mumps Raynauds syndrome Reflux Scleroderma Surgical History Surgery Date(Month/Year) thyroid 2007 cardiac ablation 2007
== END 2025-10-09 14:38 | disposition home or self-care (01) ==
LOC: HO.HPS 13:39
PROVIDERS: PCP Internal Medicine; Visit Provider Hospitalist
DX: G47.33 Obstructive sleep apnea (adult) (pediatric) (principal); I48.92 Unspecified atrial flutter; I47.10 Supraventricular tachycardia, unspecified; M34.9 Systemic sclerosis, unspecified
CPT/HCPCS: 99214

== ENCOUNTER → 2025-10-09 13:38 | Outpatient (BNVA) | payer MEDICARE, SELFPAY | PROVIDERS: PCP Internal Medicine; Visit Provider Hospitalist | DX: G47.33 Obstructive sleep apnea (adult) (pediatric) (principal); I48.92 Unspecified atrial flutter; I47.10 Supraventricular tachycardia, unspecified; M34.9 Systemic sclerosis, unspecified | CPT/HCPCS: 99212 ==